=== PATIENT | male | born 1935 | race Caucasian/White ===

== ENCOUNTER 2017-03-20 00:05 | Emergency (ER) | payer MEDICARE, BC ==
--- NOTE | 2017-03-20 00:32 | EDM.PDOC ---
ED HPI GENERAL MEDICAL PROBLEM - General Chief Complaint: Trauma Stated Complaint: MEDICAL VIA NORTH - FALL Time Seen by Provider: 03/20/17 00:30 Source of Information: Reports: Patient History Limitations: Reports: No Limitations - History of Present Illness INITIAL COMMENTS - FREE TEXT/NARRATIVE: pt arrived after falling down 2 flights of stairs. He hit his head and was slightly confused at first. He was also complaining of neck pain. He has a abrasion on the top of his head. He has swelling in the left wrist. Onset: Today, Sudden Duration: Minutes: Location: Reports: Head, Neck, Upper Extremity, Left, Upper Extremity, Right Associated Symptoms: Reports: Confusion, Other (pt did complain of neck pain) Treatments BULK FOLDER: Reports: Cervical Collar, IV/IO left wrist Pain Score (Numeric/FACES): 6 right thumb Pain Score (Numeric/FACES): 6 - Related Data Allergies Allergy/AdvReac Type Severity Reaction Status Date / Time meperidine Allergy Cannot Verified 03/20/17 00:13 Remember Home Meds: Home Meds Cholecalciferol (Vitamin D3) [Vitamin D3] 6,000 unit PO DAILY 02/09/15 [History] Lcysteine 600 mg PO DAILY 02/09/15 [History] [place]-3 Fatty Acids [Fish Oil] 1,000 mg PO DAILY 02/09/15 [History] Policosanol Combination No.3 [Zyncol] 10 mg PO DAILY 02/09/15 [History] Prasterone (DHEA) [Dhea 25] 25 mg PO DAILY 02/09/15 [History] Resveratrol 800 mg PO DAILY 02/09/15 [History] S-Adenosylmethionine Sul Tosyl [Dayo-E] 200 mg PO DAILY 02/09/15 [History] Theanine [Vitamelts Relax] 100 mg PO DAILY 02/09/15 [History] Thyroid [[place] Thyroid] 65 mg PO DAILY 02/09/15 [History] Tocopherols 525 units PO DAILY 02/09/15 [History] Ubidecarenone [Co Q-10] 50 mg PO DAILY 02/09/15 [History] Vitamin D3/Vitamin K2 [D3 + K2 Dots 1,000 Unit] 2,100 mcg PO DAILY 02/09/15 [ History] levOCARNitine [l-Carnitine] 500 mg PO DAILY 02/09/15 [History] Past Medical History Other Gastrointestinal History: Hernia repairs. colon cancer colon resections Other Genitourinary History: Penile clamp Other Dermatologic History: skin cancer Social & Family History - Tobacco Use Smoking Status *Q: Never Smoker - Caffeine Use Caffeine Use: Reports: Coffee - Alcohol Use Days Per Week of Alcohol Use: 3 Number of Drinks Per Day: 3 Total Drinks Per Week: 9 - Recreational Drug Use Recreational Drug Use: No Review of Systems - Review of Systems Review Of Systems: See Below Constitutional: Reports: No Symptoms Eyes: Reports: No Symptoms Ears: Reports: No Symptoms Nose: Reports: No Symptoms Mouth/Throat: Reports: No Symptoms Respiratory: Reports: No Symptoms Cardiovascular: Reports: No Symptoms GI/Abdominal: Reports: No Symptoms Genitourinary: Reports: Incontinence Musculoskeletal: Reports: Neck Pain Neurological: Reports: Confusion Psychiatric: Reports: No Symptoms ED EXAM, GENERAL - Physical Exam Exam: See Below Free Text/Narrative:: Pt arrived with pain in the neck. He felt confused after the fall. He got up to go to the BR and loss his balance and he fell down a couple of flights of stairs. he was confused after the fall but that has improved. He is complaining of pain in the left wrist and there is swelling. Exam Limited By: No Limitations General Appearance: Alert, Anxious, Moderate Distress, Other (pupils are equal and reactive. ) Ears: Normal TMs Nose: Normal Inspection Throat/Mouth: Normal Inspection Head: Other (pt has an abrasion at the top of his head. He is current with his tetanus. ) Neck: Other (pt has tenderness at the upper portion of the cervical spine. ) Respiratory/Chest: No Respiratory Distress Cardiovascular: Regular Rate, Rhythm GI/Abdominal: Soft, Non-Tender (Male) Exam: Other (pt has urine incontinence. A preciado cath was placed. ) Rectal (Males) Exam: Deferred Back Exam: Normal Inspection Extremities: Normal Inspection Neurological: Alert, Oriented, Normal Cognition Psychiatric: Anxious Course - Vital Signs Last Recorded V/S: Last Vital Signs Temp 38 C 03/20/17 01:45 Pulse 61 03/20/17 00:08 Resp 18 03/20/17 02:09 BP 156/65 H 03/20/17 02:09 Pulse Ox 94 L 03/20/17 02:09 - Orders/Labs/Meds Orders: Active Orders 24 hr Category Date Time Status EKG Documentation Completion [RC] ASDIRECTED Care 03/20/17 00:30 Active Cervical Spine wo Cont [CT] Stat Exams 03/20/17 00:06 Taken Head wo Cont [CT] Stat Exams 03/20/17 00:06 Taken Wrist Comp Min 3V Lt [CR] Stat Exams 03/20/17 00:08 Taken EKG 12 Lead [EK] Routine Ther 03/20/17 00:30 Ordered Labs: Laboratory Tests 03/20/17 03/20/17 03/20/17 Range/Units 00:06 00:11 00:11 WBC 6.4 (4.5-11.0) K/uL RBC 4.52 (4.30-5.90) M/uL Hgb 14.2 (12.0-15.0) g/dL Hct 42.4 (40.0-54.0) % MCV 94 (80-98) fL MCH 31 (27-31) pg MCHC 34 (32-36) % Plt Count 150 (150-400) K/uL Neut % (Auto) 46 (36-66) % Lymph % (Auto) 42 (24-44) % [place] % (Auto) 8 H (2-6) % Eos % (Auto) 3 (2-4) % Baso % (Auto) 1 (0-1) % Sodium 145 (140-148) mmol/L Potassium 3.7 (3.6-5.2) mmol/L Chloride 106 (100-108) mmol/L Carbon Dioxide 32 (21-32) mmol/L Anion Gap 7.2 (5.0-14.0) mmol/L BUN 19 H (7-18) mg/dL Creatinine 1.1 (0.8-1.3) mg/dL Est Cr Clr Drug Dosing 56.22 mL/min Estimated GFR (MDRD) > 60 (>60) Glucose 105 (74-106) mg/dL Calcium 9.0 (8.5-10.1) mg/dL Total Bilirubin 0.7 (0.2-1.0) mg/dL AST 24 (15-37) U/L ALT 29 (12-78) U/L Alkaline Phosphatase 94 (46-116) U/L Troponin I (0.000-0.056) ng/mL Total Protein 7.0 (6.4-8.2) g/dL Albumin 3.3 L (3.4-5.0) g/dL Globulin 3.7 H (2.3-3.5) g/dL Albumin/Globulin Ratio 0.9 L (1.2-2.2) TSH, Ultra Sensitive (0.358-3.740) uIU/mL Urine Color Urine Appearance Urine pH (4.5-8.0) Ur Specific [place] (1.008-1.030) Urine Protein (NEGATIVE) mg/dL Urine Glucose (UA) (NEGATIVE) mg/dL Urine Ketones (NEGATIVE) mg/dL Urine Occult Blood (NEGATIVE) Urine Nitrite (NEGAITVE) Urine Bilirubin (NEGATIVE) Urine Urobilinogen (NORMAL) mg/dL Ur Leukocyte Esterase (NEGATIVE) Urine RBC (0-5) Urine WBC (0-5) Ur Epithelial Cells Amorphous Sediment Urine Bacteria Urine Mucus Ethyl Alcohol < 3 mg/dL 03/20/17 03/20/17 03/20/17 Range/Units 00:13 00:30 01:39 WBC (4.5-11.0) K/uL RBC (4.30-5.90) M/uL Hgb (12.0-15.0) g/dL Hct (40.0-54.0) % MCV (80-98) fL MCH (27-31) pg MCHC (32-36) % Plt Count (150-400) K/uL Neut % (Auto) (36-66) % Lymph % (Auto) (24-44) % [place] % (Auto) (2-6) % Eos % (Auto) (2-4) % Baso % (Auto) (0-1) % Sodium (140-148) mmol/L Potassium (3.6-5.2) mmol/L Chloride (100-108) mmol/L Carbon Dioxide (21-32) mmol/L Anion Gap (5.0-14.0) mmol/L BUN (7-18) mg/dL Creatinine (0.8-1.3) mg/dL Est Cr Clr Drug Dosing mL/min Estimated GFR (MDRD) (>60) Glucose (74-106) mg/dL Calcium (8.5-10.1) mg/dL Total Bilirubin (0.2-1.0) mg/dL AST (15-37) U/L ALT (12-78) U/L Alkaline Phosphatase (46-116) U/L Troponin I < 0.017 (0.000-0.056) ng/mL Total Protein (6.4-8.2) g/dL Albumin (3.4-5.0) g/dL Globulin (2.3-3.5) g/dL Albumin/Globulin Ratio (1.2-2.2) TSH, Ultra Sensitive 2.491 (0.358-3.740) uIU/mL Urine Color Yellow Urine Appearance Clear Urine pH 6.0 (4.5-8.0) Ur Specific [place] 1.020 (1.008-1.030) Urine Protein Negative (NEGATIVE) mg/dL Urine Glucose (UA) Normal (NEGATIVE) mg/dL Urine Ketones Negative (NEGATIVE) mg/dL Urine Occult Blood Negative (NEGATIVE) Urine Nitrite Negative (NEGAITVE) Urine Bilirubin Negative (NEGATIVE) Urine Urobilinogen Normal (NORMAL) mg/dL Ur Leukocyte Esterase Negative (NEGATIVE) Urine RBC 0-5 (0-5) Urine WBC 0-5 (0-5) Ur Epithelial Cells Not seen Amorphous Sediment Not seen Urine Bacteria Not seen Urine Mucus Not seen Ethyl Alcohol mg/dL - Re-Assessments/Exams Free Text/Narrative Re-Assessment/Exam: 03/20/17 01:40 pt is current with tetanus. He had a cat scan of the head which was neg. He had a cat scan of the cervical spine which showed a c2 vertbral fracture involving the right transverse giles. He had an xray of his left wrist which did reveal a fracture of the distal radius. a splint was applied to the wrist. He had a preciado cath inserted because of the cervical spine. Departure - Departure Time of Disposition: 02:12 Disposition: DC/Tfer to Acute Hospital 02 Condition: Fair Clinical Impression: Fracture of C2 vertebra, closed, Abrasion of scalp, Fracture of distal end of left radius, Concussion - Discharge Information Referrals: PCP,None [Primary Care Provider] - Forms: ED Department Discharge Care Plan Goals: transfer to [facility]. - My Orders Last 24 Hours: My Active Orders 03/20/17 00:06 Cervical Spine wo Cont [CT] Stat Head wo Cont [CT] Stat 03/20/17 00:08 Wrist Comp Min 3V Lt [CR] Stat 03/20/17 00:30 EKG Documentation Completion [RC] ASDIRECTED EKG 12 Lead [EK] Routine - Assessment/Plan Last 24 Hours: My Active Orders 03/20/17 00:06 Cervical Spine wo Cont [CT] Stat Head wo Cont [CT] Stat 03/20/17 00:08 Wrist Comp Min 3V Lt [CR] Stat 03/20/17 00:30 EKG Documentation Completion [RC] ASDIRECTED EKG 12 Lead [EK] Routine
[2017-03-20 02:10] VITALS: BP 156/65
--- NOTE | 2017-03-20 10:50 | CR ---
Left wrist There is a nondisplaced fracture of the radial styloid process. There is adjacent soft tissue swellin g. The ulna and carpal bones are intact. Impression: 1. Nondisplaced fracture of the radial styloid.
== END 2017-03-20 02:41 ==
LOC: JP.ED 00:05
DX: S06.0X9A Concussion with loss of consciousness of unspecified duration, initial encounter (principal); S12.100A Unspecified displaced fracture of second cervical vertebra, initial encounter for closed fracture; S52.502A Unspecified fracture of the lower end of left radius, initial encounter for closed fracture; S00.01XA Abrasion of scalp, initial encounter; Z88.8 Allergy status to other drugs, medicaments and biological substances; Z79.899 Other long term (current) drug therapy; W10.8XXA Fall (on) (from) other stairs and steps, initial encounter; Y92.009 Unspecified place in unspecified non-institutional (private) residence as the place of occurrence of the external cause
CPT/HCPCS: 36415; 51702; 70450; 72125; 73110; 80053; 81001; 84443; 84484; 85025; 93005; 93010; 99285; G0480; 99284

== ENCOUNTER 2018-05-08 19:30 | Emergency (ER) | payer MEDICARE, BC ==
[2018-05-08 19:59] VITALS: BP 145/82
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
== END 2018-05-08 21:20 | disposition home or self-care (01) ==
LOC: JP.ED 19:30
DX: S90.02XA Contusion of left ankle, initial encounter (principal); I10 Essential (primary) hypertension; Z88.8 Allergy status to other drugs, medicaments and biological substances; Z79.899 Other long term (current) drug therapy; V49.9XXA Car occupant (driver) (passenger) injured in unspecified traffic accident, initial encounter
CPT/HCPCS: 73610-LT; 73630-LT; 99284

== ENCOUNTER 2018-06-24 16:43 | Inpatient (IN) | payer MEDICARE, BC ==
[2018-06-24] MEDS ORDERED: Sodium Chloride 0.9% 10 ML Syringe FLUSH PRN (17:00)
--- NOTE | 2018-06-24 17:08 | EDM.PDOC ---
ED HPI GENERAL MEDICAL PROBLEM - General Chief Complaint: Neuro Symptoms/Deficits Stated Complaint: POSSIBLE STROKE Time Seen by Provider: 06/24/18 17:05 Source of Information: Reports: Patient, Family, RN Notes Reviewed History Limitations: Reports: Physical Impairment - History of Present Illness INITIAL COMMENTS - FREE TEXT/NARRATIVE: 83-year-old gentleman presents emergency department today with complaint of slurred speech, his is present with him she believes the symptoms started last night states he might of been better this morning but the symptoms now have progressed he is well over 24 hours out. He does have a known history of underlying dementia reports no other symptomology other than has been drooling for about a week Denies Pain Score (Numeric/FACES): 0 - Related Data Allergies Allergy/AdvReac Type Severity Reaction Status Date / Time meperidine Allergy Cannot Verified 06/24/18 16:58 Remember Home Meds: Home Meds Cholecalciferol (Vitamin D3) [Vitamin D3] 3,000 unit PO DAILY 02/09/15 [History] [place]-3 Fatty Acids [Fish Oil] 1,000 mg PO DAILY 02/09/15 [History] Resveratrol 800 mg PO DAILY 02/09/15 [History] Ubidecarenone [Co Q-10] 50 mg PO DAILY 02/09/15 [History] Vitamin D3/Vitamin K2 [D3 + K2 Dots 1,000 Unit] 2,100 mcg PO DAILY 02/09/15 [ History] levOCARNitine [l-Carnitine] 500 mg PO DAILY 02/09/15 [History] Donepezil HCl [Aricept] 10 mg PO BEDTIME 05/08/18 [History] *Gamma E 1 tab PO DAILY 06/24/18 [History] Phytonadione [Vitamin K] 100 mcg PO DAILY 06/24/18 [History] Past Medical History HEENT History: Reports: Cataract Cardiovascular History: Reports: Afib, Hypertension Other Gastrointestinal History: Hernia repairs. colon cancer colon resections Other Genitourinary History: Penile clamp Musculoskeletal History: Reports: Fracture Psychiatric History: Reports: Dementia, Depression Oncologic (Cancer) History: Reports: Colon, Prostate Other Oncologic History: skin Other Dermatologic History: skin cancer - Infectious Disease History Infectious Disease History: Reports: C-Difficile, Measles - Past Surgical History HEENT Surgical History: Reports: Cataract Surgery Social & Family History - Caffeine Use Caffeine Use: Reports: Coffee ED ROS GENERAL - Review of Systems Review Of Systems: See Below Constitutional: Reports: Weakness HEENT: Reports: No Symptoms Respiratory: Reports: No Symptoms Cardiovascular: Reports: No Symptoms GI/Abdominal: Reports: No Symptoms : Reports: No Symptoms Musculoskeletal: Reports: No Symptoms Skin: Reports: No Symptoms Neurological: Reports: Trouble Speaking ED EXAM, NEURO - Physical Exam Exam: See Below Text/Narrative:: Cranial nerves II test with pupillary light reflex 4 mm to 2 mm bilaterally, CN III test pupillary constriction, lid elevation and eye abduction bilaterally, no weakness noted, CN IV downward movement of eyes bilaterally, CN V good jaw movement, CN lateral deviation of the eyes bilaterally to finger movement, CN VII a symmetrical smile with drooping on the left, forehead is spared, CN VIII pass finger rub to ears bilaterally, CN IX adequate voice and tone, CN X adequate voice and tone no difficulty swallowing, CN XI can shrug shoulders without difficulty, CN XII can stick tongue out without difficulty, cranial nerves II to XII intact as tested, power is 5 out 5 in upper and lower extremities, patellar reflex, biceps reflex +2 can do finger to nose without difficulty, no dysdiadochokinesis, Exam Limited By: Physical Impairment General Appearance: Alert, WD/WN, No Apparent Distress Eye Exam: Bilateral Eye: EOMI, PERRL Respiratory/Chest: No Respiratory Distress, Lungs Clear, Normal Breath Sounds, No Accessory Muscle Use Cardiovascular: Irregularly Irregular GI/Abdominal: Soft, Non-Tender Course - Vital Signs Last Recorded V/S: Last Vital Signs Temp 97.2 F 06/24/18 17:09 Pulse 44 L 06/24/18 17:09 Resp 13 06/24/18 17:09 BP 157/88 H 06/24/18 17:09 Pulse Ox 98 06/24/18 17:09 - Orders/Labs/Meds Orders: Active Orders 24 hr Category Date Time Status EKG Documentation Completion [RC] ASDIRECTED Care 06/24/18 17:02 Active Peripheral IV Care [RC] . DIRECTED Care 06/24/18 17:02 Active DRUG SCREEN, URINE [URCHEM] Stat Lab 06/24/18 17:04 Ordered UA W/MICROSCOPIC [URIN] Urgent Lab 06/24/18 17:00 Ordered Sodium Chloride 0.9% [Saline Flush] Med 06/24/18 17:00 Active 10 ml FLUSH ASDIRECTED PRN Peripheral IV Insertion Adult [OM.PC] Urgent Oth 06/24/18 17:00 Ordered EKG 12 Lead [EK] Urgent Ther 06/24/18 17:00 Ordered Medication Orders Sodium Chloride (Saline Flush) 10 ml FLUSH ASDIRECTED PRN PRN Reason: Keep Vein Open Last Admin: 06/24/18 17:19 Dose: 10 ml Labs: Laboratory Tests 06/24/18 06/24/18 06/24/18 Range/Units 17:00 17:00 17:00 WBC 6.0 (4.5-11.0) K/uL RBC 4.49 (4.30-5.90) M/uL Hgb 13.9 (12.0-15.0) g/dL Hct 42.3 (40.0-54.0) % MCV 94 (80-98) fL MCH 31 (27-31) pg MCHC 33 (32-36) % Plt Count 129 L (150-400) K/uL Neut % (Auto) 58 (36-66) % Lymph % (Auto) 34 (24-44) % [place] % (Auto) 7 H (2-6) % Eos % (Auto) 1 L (2-4) % Baso % (Auto) 0 (0-1) % PT 11.8 (9.5-12.0) sec INR 1.08 (0.80-1.20) APTT 29.2 (27.0-36.0) sec Sodium 143 (140-148) mmol/L Potassium 3.5 L (3.6-5.2) mmol/L Chloride 105 (100-108) mmol/L Carbon Dioxide 30 (21-32) mmol/L Anion Gap 11.5 (5.0-14.0) mmol/L BUN 18 (7-18) mg/dL Creatinine 1.0 (0.8-1.3) mg/dL Est Cr Clr Drug Dosing 59.82 mL/min Estimated GFR (MDRD) > 60 (>60) Glucose 101 (74-106) mg/dL Calcium 9.1 (8.5-10.1) mg/dL Total Bilirubin 0.7 (0.2-1.0) mg/dL AST 19 (15-37) U/L ALT 24 (12-78) U/L Alkaline Phosphatase 98 (46-116) U/L Troponin I < 0.017 (0.000-0.056) ng/mL Total Protein 7.0 (6.4-8.2) g/dL Albumin 3.4 (3.4-5.0) g/dL Globulin 3.6 H (2.3-3.5) g/dL Albumin/Globulin Ratio 0.9 L (1.2-2.2) Meds: Medications Generic Name Dose Route Start Last Admin Trade Name Freq PRN Reason Stop Dose Admin Sodium Chloride 10 ml 06/24/18 17:00 06/24/18 17:19 Saline Flush FLUSH 10 ml ASDIRECTED PRN Administration Keep Vein Open Departure - Departure Time of Disposition: 18:30 Disposition: Admitted As Inpatient 66 Condition: Poor Clinical Impression: Slurred speech - Discharge Information Referrals: PCP,None [Primary Care Provider] - Forms: ED Department Discharge - My Orders Last 24 Hours: My Active Orders 06/24/18 17:00 UA W/MICROSCOPIC [URIN] Urgent Sodium Chloride 0.9% [Saline Flush] 10 ml FLUSH ASDIRECTED PRN Peripheral IV Insertion Adult [OM.PC] Urgent EKG 12 Lead [EK] Urgent 06/24/18 17:02 EKG Documentation Completion [RC] ASDIRECTED Peripheral IV Care [RC] . DIRECTED 06/24/18 17:04 DRUG SCREEN, URINE [URCHEM] Stat - Assessment/Plan Last 24 Hours: My Active Orders 06/24/18 17:00 UA W/MICROSCOPIC [URIN] Urgent Sodium Chloride 0.9% [Saline Flush] 10 ml FLUSH ASDIRECTED PRN Peripheral IV Insertion Adult [OM.PC] Urgent EKG 12 Lead [EK] Urgent 06/24/18 17:02 EKG Documentation Completion [RC] ASDIRECTED Peripheral IV Care [RC] . DIRECTED 06/24/18 17:04 DRUG SCREEN, URINE [URCHEM] Stat Plan: Assessment Acuity = acute Site and laterality = strokelike symptoms left-sided facial droop with slurred speech complicated patient with significant dementia Etiology = [unclear etiology Manifestations = none Location of injury = Home Lab values = CBC, CMP, urinalysis unremarkable CT scan of the head shows no acute process Plan Because of his significant dementia family does not want any aggressive measures I discussed transfer to stroke centers department they declined, they are currently seeking placement in the memory care unit they are interested in an MRI for further evaluation of his current symptoms whether CVA versus Hickey's palsy versus aspects of his dementia. Also they are trying to gain placement to memory care unit at this time. Called discussed case with hospitalist enthone solder stripper at 1800 kindly agreed to come and evaluate patient emergency department for admission This note was dictated using [employer] voice recognition software please call with any questions on syntax or grammar.
--- NOTE | 2018-06-24 18:06 | CRLCT ---
INDICATION: Slurred speech. Left-sided facial droop. Stroke protocol. TECHNIQUE: CT head without contrast. COMPARISON: 03/20/17 FINDINGS: There is age-related cortical atrophy with associated ventriculomegaly. There is no mass effect or midline shift. White matter hypodensities are suggestive of chronic small vessel ischemic changes. There is no loss of white-white differentiation. There is increased density in the left supra clinoid carotid and proximal MCA, however, this was seen on the prior. There is no evidence of an acute intracranial hemorrhage. Foci of gas in the left cavernous region could be related to IV access. No acute calvarial fracture is seen. There are foci of mild mucosal thickening in the ethmoid sinuses. The mastoid air cells are clear. Post cataract surgery changes are seen. IMPRESSION: No evidence of an acute intracranial hemorrhage, mass effect or loss of white-white differentiation. Increased attenuation in the left supra clinoid carotid and proximal MCA was seen on the prior study. If indicated, correlate with MRI. The findings were communicated to Dr. Officer, on 06/24/2018 at 6:04 p.m.. Dictated by Huy Bernard MD @ 06/24/2018 6:05:48 PM Please note that all CT scans at this facility use dose modulation, iterative reconstruction, and/or weight-based dosing when appropriate to reduce radiation dose to as low as reasonably achievable. Dictated by: Huy Bernard MD @ 06/24/2018 18:05:51 (Electronically Signed)
[2018-06-24] MEDS ORDERED: LORazepam 2 MG/ML SDV IV PRN (20:38)
[2018-06-24] MEDS ORDERED: Docusate Sodium 100 MG Cap PO PRN (20:38)
[2018-06-24] MEDS ORDERED: Ondansetron 4 MG/2 ML SDV IV PRN (20:38)
[2018-06-24] MEDS ORDERED: Morphine 2 MG/ML Syringe IVPUSH PRN (20:38)
[2018-06-24] MEDS ORDERED: Albuterol 0.083% 2.5 MG/3 ML Neb Soln NEB PRN (20:38)
[2018-06-24] MEDS ORDERED: Acetaminophen 325 MG Tab PO PRN (20:38)
[2018-06-24] MEDS ORDERED: Ondansetron 4 MG Tab.DIS PO PRN (20:38)
[2018-06-24] MEDS ORDERED: Aspirin 81 MG Tab.Chew PO ONE (20:38)
[2018-06-24] MEDS ORDERED: oxyCODONE 5 MG Tab PO PRN (20:38)
[2018-06-24] MEDS: Sodium Chloride 0.9% 1,000 ML IV SCH (20:56)
[2018-06-24] MEDS: Donepezil 10 MG Tab PO SCH (21:04)
[2018-06-24] MEDS ORDERED: cefTRIAXone 1 GM in Sodium Chloride 0.9% 50 ML IV SCH (22:30)
--- NOTE | 2018-06-24 22:38 | PCM.HP ---
H&P History of Present Illness - General Date of Service: 06/24/18 Admit Problem/Dx: Admission Diagnosis/Problem Admission Diagnosis/Problem Stroke-like symptoms Source of Information: Family ( Sunita of 40 years.) History Limitations: Reports: Altered Mental Status (advanced dementia) - History of Present Illness Initial Comments - Free Text/Narative: 83-year-old gentleman presents emergency department today with complaint of slurred speech, his is present with him she believes the symptoms started last night states he might of been better this morning but the symptoms now have progressed he is well over 24 hours out. He does have a known history of underlying dementia reports no other symptomatology other than has been drooling for about a week Onset of Symptoms: Reports: Gradual Duration of Symptoms: Reports: Day(s): (yesterday evening) Location: Reports: Head (left sided facial droop, unsteady gait) Improves with: Reports: None Worsens with: Reports: Other ( reports this morning he was better, then as the day progressed he got worse, but also reports he usually is more tired in the afternoon. ) Associated Symptoms: Reports: Weakness (left sided facial droop with unsteady gait) Denies Pain Score (Numeric/FACES): 0 - Related Data Allergies/Adverse Reactions: Allergies Allergy/AdvReac Type Severity Reaction Status Date / Time meperidine Allergy Cannot Verified 06/24/18 16:58 Remember Home Medications: Home Meds Cholecalciferol (Vitamin D3) [Vitamin D3] 3,000 unit PO DAILY 02/09/15 [History] [place]-3 Fatty Acids [Fish Oil] 1,000 mg PO DAILY 02/09/15 [History] Resveratrol 800 mg PO DAILY 02/09/15 [History] Ubidecarenone [Co Q-10] 50 mg PO DAILY 02/09/15 [History] Vitamin D3/Vitamin K2 [D3 + K2 Dots 1,000 Unit] 2,100 mcg PO DAILY 02/09/15 [ History] levOCARNitine [l-Carnitine] 500 mg PO DAILY 02/09/15 [History] Donepezil HCl [Aricept] 10 mg PO BEDTIME 05/08/18 [History] *Gamma E 1 tab PO DAILY 06/24/18 [History] Phytonadione [Vitamin K] 100 mcg PO DAILY 03/06/19 [History] Past Medical History HEENT History: Reports: Cataract Cardiovascular History: Reports: Afib, Hypertension Other Gastrointestinal History: Hernia repairs. colon cancer colon resections Genitourinary History: Reports: Urinary Incontinence Other Genitourinary History: Penile clamp Musculoskeletal History: Reports: Fracture Psychiatric History: Reports: Dementia, Depression Oncologic (Cancer) History: Reports: Colon, Prostate Other Oncologic History: skin Other Dermatologic History: skin cancer - Infectious Disease History Infectious Disease History: Reports: C-Difficile, Measles - Past Surgical History HEENT Surgical History: Reports: Cataract Surgery Social & Family History - Family History Family Medical History: Unobtainable - Tobacco Use Smoking Status *Q: Never Smoker Second Hand Smoke Exposure: No - Caffeine Use Caffeine Use: Reports: None - Alcohol Use Days Per Week of Alcohol Use: 0 - Recreational Drug Use Recreational Drug Use: No - Living Situation & Occupation Living situation: Reports: , with Family Occupation: Disabled (lives with Sunita of 40 years. Son last year of sudden heart attack, Daughter is not well, Mental health issues. Disabled by Dementia. cared for at home by . 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 After [employer]ci traveled for 11 years in Travel trailer, then he got dementia in 2002.) H&P Review of Systems - Review of Systems: Review Of Systems: Unable To Obtain ( gives 100% of report, Mr. Malagon give yes or no, or rambling answer not related to question.) General: Reports: Weakness (progress weakness and unsteady gait, multi falls at home, now using a walker), Fatigue (sleeping all the time, more alert in the morning.) HEENT: Reports: Other (left sided facial droop since yesterday evening.) Pulmonary: Reports: No Symptoms Cardiovascular: Reports: Palpitations (A.Fib), Edema (lower legs for years), Other (A.Fib- takes blood thinner and vitamin K) Gastrointestinal: Reports: Constipation (intermittent), Diarrhea (intermittent) , Stool Incontinence (wears pads or diapers) Genitourinary: Reports: Incontinence (had prostate surgery, now has penile clamp to use during the day, takes off at night.) Musculoskeletal: Reports: Muscle Stiffness Skin: Reports: Rash (chronic rash on lower legs for weeks or months. does not appear to cause him any discomfort) Psychiatric: Reports: Confusion, Other (advanced cognitive impairment, dementia since 2002) Neurological: Reports: Pre-Existing Deficit (advance dementia first diagnosed in 2002.), Difficulty Walking (progressive unsteady gait and increased falls at home.), Weakness (increase in weakness) Hematologic/Lymphatic: Reports: Easy Bruising (blood thinner for A.Fib) Review of Systems Comment:: reports her was first diagnosed with dementia, mild to moderate cognitive impairment in 2002. This has changed their lives. They had to settle down from their travels. Purchased a one bedroom home in [place]. He is now unable to care for himself, drive or do any of his usual activities. He is incontinent of bladder and bowel, sometimes he is able to go to the bathroom. He spends most of his days sleeping. He ambulates with a walker, but now gait is unsteady and he has frequent falls at home. has to monitor him 11/11. Then last evening he had left facial droop and worsen gait. She brought him to the ER with concerns of stroke. She is unable to care for him at home. He had a room at the [facility], he was supposed to move in last Friday or Friday. But when seen the requirements of the home, she choose not to place him there. Exam - Exam Exam: See Below - Vital Signs Vital Signs: Last Vital Signs Temp 36.3 C 06/24/18 20:30 Pulse 47 L 06/24/18 20:30 Resp 16 06/24/18 20:30 BP 142/75 H 06/24/18 20:30 Pulse Ox 100 06/24/18 20:30 Weight: 86.863 kg - Exam General: Alert, Cooperative (laying on stretcher, does not appear to be in any distress, follows commands. answers questions yes or no or rambling speech not related to subject.), Other HEENT: PERRLA, Conjunctiva Clear, EOMI, Hearing Intact, Mucosa Moist & [place], Nares Patent, Normal Nasal Septum, Posterior Pharynx Clear Neck: Supple, Trachea Midline Lungs: Clear to Auscultation, Normal Respiratory Effort Cardiovascular: Bradycardia GI/Abdominal Exam: Normal Bowel Sounds, Soft, Non-Tender, No Organomegaly, No Distention (Male) Exam: Deferred Rectal (Males) Exam: Deferred Back Exam: Normal Inspection Extremities: Pedal Edema (1+ edema of lower legs is noted, has compresson socks ), Limited Range of Motion (muscle stiffnes, but able to move all extremities equal. 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) Skin: Warm, Dry, Intact Neurological: Strength Equal Bilateral Neuro Extensive - Mental Status: Disorientation to Person, Disorientation to Place, Disorientation to Time, Inattentive, Memory Loss-Remote Events Neuro Extensive - Motor, Sensory, Reflexes: Motor/Sensory Deficits, Facial palsy (L) Psychiatric: Other (awake, flat affect) - Patient Data Lab Results Last 24 hrs: Laboratory Results - last 24 hr 06/24/18 06/24/18 06/24/18 Range/Units 17:00 17:00 17:00 WBC 6.0 (4.5-11.0) K/uL RBC 4.49 (4.30-5.90) M/uL Hgb 13.9 (12.0-15.0) g/dL Hct 42.3 (40.0-54.0) % MCV 94 (80-98) fL MCH 31 (27-31) pg MCHC 33 (32-36) % Plt Count 129 L (150-400) K/uL Neut % (Auto) 58 (36-66) % Lymph % (Auto) 34 (24-44) % [place] % (Auto) 7 H (2-6) % Eos % (Auto) 1 L (2-4) % Baso % (Auto) 0 (0-1) % PT 11.8 (9.5-12.0) sec INR 1.08 (0.80-1.20) APTT 29.2 (27.0-36.0) sec Sodium 143 (140-148) mmol/L Potassium 3.5 L (3.6-5.2) mmol/L Chloride 105 (100-108) mmol/L Carbon Dioxide 30 (21-32) mmol/L Anion Gap 11.5 (5.0-14.0) mmol/L BUN 18 (7-18) mg/dL Creatinine 1.0 (0.8-1.3) mg/dL Est Cr Clr Drug Dosing 59.82 mL/min Estimated GFR (MDRD) > 60 (>60) Glucose 101 (74-106) mg/dL Calcium 9.1 (8.5-10.1) mg/dL Total Bilirubin 0.7 (0.2-1.0) mg/dL AST 19 (15-37) U/L ALT 24 (12-78) U/L Alkaline Phosphatase 98 (46-116) U/L Troponin I < 0.017 (0.000-0.056) ng/mL Total Protein 7.0 (6.4-8.2) g/dL Albumin 3.4 (3.4-5.0) g/dL Globulin 3.6 H (2.3-3.5) g/dL Albumin/Globulin Ratio 0.9 L (1.2-2.2) Urine Color Urine Appearance Urine pH (4.5-8.0) Ur Specific [place] (1.008-1.030) Urine Protein (NEGATIVE) mg/dL Urine Glucose (UA) (NEGATIVE) mg/dL Urine Ketones (NEGATIVE) mg/dL Urine Occult Blood (NEGATIVE) Urine Nitrite (NEGAITVE) Urine Bilirubin (NEGATIVE) Urine Urobilinogen (NORMAL) mg/dL Ur Leukocyte Esterase (NEGATIVE) Urine RBC (0-5) Urine WBC (0-5) Ur Epithelial Cells Amorphous Sediment Urine Bacteria Urine Mucus Urine Opiates Screen (NEGATIVE) Ur Oxycodone Screen (NEGATIVE) Urine Methadone Screen (NEGATIVE) Ur Propoxyphene Screen (NEGATIVE) Ur Barbiturates Screen (NEGATIVE) Ur Tricyclics Screen (NEGATIVE) Ur Phencyclidine Scrn (NEGATIVE) Ur Amphetamine Screen (NEGATIVE) U Methamphetamines Scrn (NEGATIVE) Urine MDMA Screen (NEGATIVE) U Benzodiazepines Scrn (NEGATIVE) U Cocaine Metab Screen (NEGATIVE) U Marijuana (THC) Screen (NEGATIVE) 06/24/18 06/24/18 Range/Units 20:29 20:29 WBC (4.5-11.0) K/uL RBC (4.30-5.90) M/uL Hgb (12.0-15.0) g/dL Hct (40.0-54.0) % MCV (80-98) fL MCH (27-31) pg MCHC (32-36) % Plt Count (150-400) K/uL Neut % (Auto) (36-66) % Lymph % (Auto) (24-44) % [place] % (Auto) (2-6) % Eos % (Auto) (2-4) % Baso % (Auto) (0-1) % PT (9.5-12.0) sec INR (0.80-1.20) APTT (27.0-36.0) sec Sodium (140-148) mmol/L Potassium (3.6-5.2) mmol/L Chloride (100-108) mmol/L Carbon Dioxide (21-32) mmol/L Anion Gap (5.0-14.0) mmol/L BUN (7-18) mg/dL Creatinine (0.8-1.3) mg/dL Est Cr Clr Drug Dosing mL/min Estimated GFR (MDRD) (>60) Glucose (74-106) mg/dL Calcium (8.5-10.1) mg/dL Total Bilirubin (0.2-1.0) mg/dL AST (15-37) U/L ALT (12-78) U/L Alkaline Phosphatase (46-116) U/L Troponin I (0.000-0.056) ng/mL Total Protein (6.4-8.2) g/dL Albumin (3.4-5.0) g/dL Globulin (2.3-3.5) g/dL Albumin/Globulin Ratio (1.2-2.2) Urine Color Yellow Urine Appearance Slightly cloudy Urine pH 5.0 (4.5-8.0) Ur Specific [place] 1.020 (1.008-1.030) Urine Protein Trace (NEGATIVE) mg/dL Urine Glucose (UA) Normal (NEGATIVE) mg/dL Urine Ketones Negative (NEGATIVE) mg/dL Urine Occult Blood Trace (NEGATIVE) Urine Nitrite Positive H (NEGAITVE) Urine Bilirubin Negative (NEGATIVE) Urine Urobilinogen Normal (NORMAL) mg/dL Ur Leukocyte Esterase Small (NEGATIVE) Urine RBC 5-10 H (0-5) Urine WBC 30-40 H (0-5) Ur Epithelial Cells Few Amorphous Sediment Not seen Urine Bacteria Many Urine Mucus Not seen Urine Opiates Screen Negative (NEGATIVE) Ur Oxycodone Screen Negative (NEGATIVE) Urine Methadone Screen Negative (NEGATIVE) Ur Propoxyphene Screen Negative (NEGATIVE) Ur Barbiturates Screen Negative (NEGATIVE) Ur Tricyclics Screen Negative (NEGATIVE) Ur Phencyclidine Scrn Negative (NEGATIVE) Ur Amphetamine Screen Negative (NEGATIVE) U Methamphetamines Scrn Negative (NEGATIVE) Urine MDMA Screen Negative (NEGATIVE) U Benzodiazepines Scrn Negative (NEGATIVE) U Cocaine Metab Screen Negative (NEGATIVE) U Marijuana (THC) Screen Negative (NEGATIVE) Result Diagrams: 06/24/18 17:00 06/24/18 17:00 - Problem List (1) Stroke-like symptoms SNOMED Code(s): 244580745 ICD Code: R29.90 - UNSPECIFIED SYMPTOMS AND SIGNS INVOLVING THE NERVOUS SYSTEM Status: Acute Priority: High Current Visit: Yes (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 SNOMED Code(s): 90442277 ICD Code: G30.9 - ALZHEIMER'S DISEASE, UNSPECIFIED; F02.80 - DEMENTIA IN OTH DISEASES CLASSD ELSWHR W/O BEHAVRL DISTURB Status: Acute Priority: High Current Visit: Yes (3) Urinary tract infection SNOMED Code(s): 39268373 ICD Code: N39.0 - URINARY TRACT INFECTION, SITE NOT SPECIFIED Status: Acute Priority: High Current Visit: Yes Qualifiers: Urinary tract infection type: site unspecified Hematuria presence: with hematuria Qualified Code(s): N39.0 - Urinary tract infection, site not specified; R31.9 - Hematuria, unspecified (4) 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 SNOMED Code(s): 88294471 ICD Code: N42.9 - DISORDER OF PROSTATE, UNSPECIFIED; R39.9 - UNSP SYMPTOMS AND SIGNS INVOLVING THE GENITOURINARY SYSTEM Status: Acute Priority: High Current Visit: Yes (5) Atrial fibrillation SNOMED Code(s): 72694642 ICD Code: I48.91 - UNSPECIFIED ATRIAL FIBRILLATION Status: Acute Priority : Medium Current Visit: Yes Qualifiers: Atrial fibrillation type: chronic Qualified Code(s): I48.2 - Chronic atrial fibrillation Problem List Initiated/Reviewed/Updated: Yes Orders Last 24hrs: Active Orders 24 hr Category Date Time Status Cardiac Monitoring [RC] .As Directed Care 06/24/18 20:38 Active Dietary Supplements [RC] BIDMEALS Care 06/24/18 22:26 Ordered Intake and Output [RC] QSHIFT Care 06/24/18 20:38 Active Notify Provider Vital Signs [RC] ASDIRECTED Care 06/24/18 20:38 Active Oxygen Therapy [RC] PRN Care 06/24/18 20:38 Active Pulse Oximetry [RC] PRN Care 06/24/18 20:38 Active RT Aerosol Therapy [RC] ASDIRECTED Care 06/24/18 20:38 Active Up With Assistance [RC] ASDIRECTED Care 06/24/18 20:38 Active VTE/DVT Education [RC] Per Unit Routine Care 06/24/18 20:38 Active Vital Signs [RC] Q4H Care 06/24/18 20:38 Active Consult to Case Management/Center Medical And Lab Director [CONS] Cons 06/24/18 20:38 Active Routine OT Evaluation and Treatment [CONS] Routine Cons 06/24/18 20:38 Active PT Evaluation and Treatment [CONS] Routine Cons 06/24/18 20:38 Active Regular Diet [DIET] Diet 06/24/18 Dinner Active BASIC METABOLIC PANEL,BMP [CHEM] AM Lab 06/25/18 05:11 Ordered CBC WITH AUTO DIFF [HEME] AM Lab 06/25/18 05:11 Ordered CULTURE URINE [RM] Routine Lab 06/24/18 22:27 Ordered Acetaminophen [Tylenol] Med 06/24/18 20:38 Active 650 mg PO Q4H PRN Albuterol [Proventil Neb Soln] Med 06/24/18 20:38 Active 2.5 mg NEB Q4H PRN Docusate Sodium [Colace] Med 06/24/18 20:38 Active 100 mg PO BID PRN Donepezil [Aricept] Med 06/24/18 21:00 Active 10 mg PO BEDTIME LORazepam [Ativan] Med 06/24/18 20:38 Active 1 mg IV Q6H PRN Morphine Med 06/24/18 20:38 Active 2 mg IVPUSH Q2H PRN Ondansetron [Zofran ODT] Med 06/24/18 20:38 Active 4 mg PO Q6H PRN Ondansetron [Zofran] Med 06/24/18 20:38 Active 4 mg IV Q4H PRN Sodium Chloride 0.9% [Normal Saline] 1,000 ml Med 06/24/18 20:38 Active IV ASDIRECTED Sodium Chloride 0.9% [Saline Flush] Med 06/24/18 17:00 Active 10 ml FLUSH ASDIRECTED PRN cefTRIAXone [Rocephin] 1 gm Med 06/24/18 22:30 Ordered Sodium Chloride 0.9% [Normal Saline] 50 ml IV Q24H levOCARNitine [l-Carnitine] Med 06/25/18 09:00 Pending 500 mg PO DAILY oxyCODONE Med 06/24/18 20:38 Active 5 mg PO Q4H PRN Sequential Compression Device [OM.PC] Per Unit Routine Oth 06/24/18 20:38 Ordered Resuscitation Status Routine Resus Stat 06/24/18 19:49 Ordered EKG 12 Lead [EK] Urgent Ther 06/24/18 17:00 Stop Req Medication Orders Acetaminophen (Tylenol) 650 mg PO Q4H PRN PRN Reason: Pain (Mild 1-3)/fever Albuterol (Proventil Neb Soln) 2.5 mg NEB Q4H PRN PRN Reason: Shortness Of Breath/wheezing Docusate Sodium (Colace) 100 mg PO BID PRN PRN Reason: Constipation Donepezil HCl (Aricept) 10 mg PO BEDTIME EVERT Last Admin: 06/24/18 21:04 Dose: 10 mg Sodium Chloride (Normal Saline) 1,000 mls @ 125 mls/hr IV ASDIRECTED EVERT Last Admin: 06/24/18 20:56 Dose: 125 mls/hr Ceftriaxone Sodium 1 gm/ (Sodium Chloride) 50 mls @ 100 mls/hr IV Q24H EVERT Lorazepam (Ativan) 1 mg IV Q6H PRN PRN Reason: Agitation Morphine Sulfate (Morphine) 2 mg IVPUSH Q2H PRN PRN Reason: Pain (severe 7-10) Non-Formulary Medication (Levocarnitine [L-Carnitine]) 500 mg PO DAILY EVERT Ondansetron HCl (Zofran Odt) 4 mg PO Q6H PRN PRN Reason: Nausea able to take PO Ondansetron HCl (Zofran) 4 mg IV Q4H PRN PRN Reason: Nausea/Vomiting Oxycodone HCl (Oxycodone) 5 mg PO Q4H PRN PRN Reason: Pain (moderate 4-6) Sodium Chloride (Saline Flush) 10 ml FLUSH ASDIRECTED PRN PRN Reason: Keep Vein Open Last Admin: 06/24/18 17:19 Dose: 10 ml Assessment/Plan Comment:: ASSESSMENT AND PLAN 83-year-old gentleman presents emergency department today with complaint of slurred speech, his is present with him she believes the symptoms started last night states he might of been better this morning but the symptoms now have progressed he is well over 24 hours out. He does have a known history of underlying dementia reports no other symptomatology other than has been drooling for about a week. ER work up, Head CT negative, Urine +nitrates, WBC,RBC, Bacteria. CBC, Chemistries, Troponin are all within normal range. will admit to hospital for Stroke-like symptoms to monitor for any worsen of symptoms. Stroke like symptoms -left facial droop -monitor for any worsen symptoms - declines any aggressive treatments or testing. She was offered referral/ transfer to Neurology unit, baby ASA, Tele, MRI with contrast, Carotid Doppler and Echocardiogram. She would agree to baby ASA and Tele. will decide tomorrow if she would like any further testing, decline transfer. At this point, request to keep comfortable and pain free. 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 ADMISSION STATUS-patient will be admitted to inpatient status, expect at least a 2 night hospital stay for evaluation and management of problems as outlined above. At the time of this admission I do not reasonably expected evaluation and management of this problem will require more than a 96 hour hospital stay. DISPOSITION-anticipate discharge to Memory Care unit or [facility] after the hospital stay. Primary Care Provider: Ajith Sánchez Hospitalist: Dr. Natan M.D.
[2018-06-25] MEDS: Sodium Chloride 0.9% 1,000 ML IV SCH (04:46)
[2018-06-25] MEDS: LEVOCARNITINE 500 MG PO SCH (09:16)
--- NOTE | 2018-06-25 12:18 | PCM.PN ---
- General Info Date of Service: 06/25/18 Subjective Update: Mr. Malagon is an 83-year-old gentleman who was admitted through the emergency department last night with right facial weakness and urinary tract infection. Facial weakness apparently been more prominent at home yesterday and was significantly improved by the time he arrived in the emergency department. On further evaluation emergency department he was found to have urinary tract infection, urine culture has been obtained and he was started on antibiotic therapy with Rocephin. Discussion was held with his on admission, she would like mainly management for comfort and did not want further aggressive evaluation or interventions. Patient is unable to provide significant or meaningful history concerning symptoms or review of systems because of his underlying dementia. - Patient Data Vitals - Most Recent: Last Vital Signs Temp 98.2 F 06/25/18 10:37 Pulse 46 L 06/25/18 10:37 Resp 14 06/25/18 10:37 BP 144/75 H 06/25/18 10:37 Pulse Ox 98 06/25/18 10:37 Weight - Most Recent: 191 lb 8.002 oz I&O - Last 24 Hours: Intake & Output 06/24/18 06/25/18 06/25/18 22:59 06:59 14:59 Intake Total 963 480 Output Total 100 225 500 Balance -100 738 -20 Lab Results Last 24 Hours: Laboratory Results - last 24 hr 06/24/18 06/24/18 06/24/18 Range/Units 17:00 17:00 17:00 WBC 6.0 (4.5-11.0) K/uL RBC 4.49 (4.30-5.90) M/uL Hgb 13.9 (12.0-15.0) g/dL Hct 42.3 (40.0-54.0) % MCV 94 (80-98) fL MCH 31 (27-31) pg MCHC 33 (32-36) % Plt Count 129 L (150-400) K/uL Neut % (Auto) 58 (36-66) % Lymph % (Auto) 34 (24-44) % [place] % (Auto) 7 H (2-6) % Eos % (Auto) 1 L (2-4) % Baso % (Auto) 0 (0-1) % PT 11.8 (9.5-12.0) sec INR 1.08 (0.80-1.20) APTT 29.2 (27.0-36.0) sec Sodium 143 (140-148) mmol/L Potassium 3.5 L (3.6-5.2) mmol/L Chloride 105 (100-108) mmol/L Carbon Dioxide 30 (21-32) mmol/L Anion Gap 11.5 (5.0-14.0) mmol/L BUN 18 (7-18) mg/dL Creatinine 1.0 (0.8-1.3) mg/dL Est Cr Clr Drug Dosing 59.82 mL/min Estimated GFR (MDRD) > 60 (>60) Glucose 101 (74-106) mg/dL Calcium 9.1 (8.5-10.1) mg/dL Total Bilirubin 0.7 (0.2-1.0) mg/dL AST 19 (15-37) U/L ALT 24 (12-78) U/L Alkaline Phosphatase 98 (46-116) U/L Troponin I < 0.017 (0.000-0.056) ng/mL Total Protein 7.0 (6.4-8.2) g/dL Albumin 3.4 (3.4-5.0) g/dL Globulin 3.6 H (2.3-3.5) g/dL Albumin/Globulin Ratio 0.9 L (1.2-2.2) Urine Color Urine Appearance Urine pH (4.5-8.0) Ur Specific [place] (1.008-1.030) Urine Protein (NEGATIVE) mg/dL Urine Glucose (UA) (NEGATIVE) mg/dL Urine Ketones (NEGATIVE) mg/dL Urine Occult Blood (NEGATIVE) Urine Nitrite (NEGAITVE) Urine Bilirubin (NEGATIVE) Urine Urobilinogen (NORMAL) mg/dL Ur Leukocyte Esterase (NEGATIVE) Urine RBC (0-5) Urine WBC (0-5) Ur Epithelial Cells Amorphous Sediment Urine Bacteria Urine Mucus Urine Opiates Screen (NEGATIVE) Ur Oxycodone Screen (NEGATIVE) Urine Methadone Screen (NEGATIVE) Ur Propoxyphene Screen (NEGATIVE) Ur Barbiturates Screen (NEGATIVE) Ur Tricyclics Screen (NEGATIVE) Ur Phencyclidine Scrn (NEGATIVE) Ur Amphetamine Screen (NEGATIVE) U Methamphetamines Scrn (NEGATIVE) Urine MDMA Screen (NEGATIVE) U Benzodiazepines Scrn (NEGATIVE) U Cocaine Metab Screen (NEGATIVE) U Marijuana (THC) Screen (NEGATIVE) 06/24/18 06/24/18 06/25/18 Range/Units 20:29 20:29 04:40 WBC 5.3 (4.5-11.0) K/uL RBC 4.27 L (4.30-5.90) M/uL Hgb 13.2 (12.0-15.0) g/dL Hct 40.2 (40.0-54.0) % MCV 94 (80-98) fL MCH 31 (27-31) pg MCHC 33 (32-36) % Plt Count 106 L (150-400) K/uL Neut % (Auto) 56 (36-66) % Lymph % (Auto) 35 (24-44) % [place] % (Auto) 7 H (2-6) % Eos % (Auto) 1 L (2-4) % Baso % (Auto) 0 (0-1) % PT (9.5-12.0) sec INR (0.80-1.20) APTT (27.0-36.0) sec Sodium (140-148) mmol/L Potassium (3.6-5.2) mmol/L Chloride (100-108) mmol/L Carbon Dioxide (21-32) mmol/L Anion Gap (5.0-14.0) mmol/L BUN (7-18) mg/dL Creatinine (0.8-1.3) mg/dL Est Cr Clr Drug Dosing mL/min Estimated GFR (MDRD) (>60) Glucose (74-106) mg/dL Calcium (8.5-10.1) mg/dL Total Bilirubin (0.2-1.0) mg/dL AST (15-37) U/L ALT (12-78) U/L Alkaline Phosphatase (46-116) U/L Troponin I (0.000-0.056) ng/mL Total Protein (6.4-8.2) g/dL Albumin (3.4-5.0) g/dL Globulin (2.3-3.5) g/dL Albumin/Globulin Ratio (1.2-2.2) Urine Color Yellow Urine Appearance Slightly cloudy Urine pH 5.0 (4.5-8.0) Ur Specific [place] 1.020 (1.008-1.030) Urine Protein Trace (NEGATIVE) mg/dL Urine Glucose (UA) Normal (NEGATIVE) mg/dL Urine Ketones Negative (NEGATIVE) mg/dL Urine Occult Blood Trace (NEGATIVE) Urine Nitrite Positive H (NEGAITVE) Urine Bilirubin Negative (NEGATIVE) Urine Urobilinogen Normal (NORMAL) mg/dL Ur Leukocyte Esterase Small (NEGATIVE) Urine RBC 5-10 H (0-5) Urine WBC 30-40 H (0-5) Ur Epithelial Cells Few Amorphous Sediment Not seen Urine Bacteria Many Urine Mucus Not seen Urine Opiates Screen Negative (NEGATIVE) Ur Oxycodone Screen Negative (NEGATIVE) Urine Methadone Screen Negative (NEGATIVE) Ur Propoxyphene Screen Negative (NEGATIVE) Ur Barbiturates Screen Negative (NEGATIVE) Ur Tricyclics Screen Negative (NEGATIVE) Ur Phencyclidine Scrn Negative (NEGATIVE) Ur Amphetamine Screen Negative (NEGATIVE) U Methamphetamines Scrn Negative (NEGATIVE) Urine MDMA Screen Negative (NEGATIVE) U Benzodiazepines Scrn Negative (NEGATIVE) U Cocaine Metab Screen Negative (NEGATIVE) U Marijuana (THC) Screen Negative (NEGATIVE) 06/25/18 Range/Units 04:40 WBC (4.5-11.0) K/uL RBC (4.30-5.90) M/uL Hgb (12.0-15.0) g/dL Hct (40.0-54.0) % MCV (80-98) fL MCH (27-31) pg MCHC (32-36) % Plt Count (150-400) K/uL Neut % (Auto) (36-66) % Lymph % (Auto) (24-44) % [place] % (Auto) (2-6) % Eos % (Auto) (2-4) % Baso % (Auto) (0-1) % PT (9.5-12.0) sec INR (0.80-1.20) APTT (27.0-36.0) sec Sodium 143 (140-148) mmol/L Potassium 3.8 (3.6-5.2) mmol/L Chloride 108 (100-108) mmol/L Carbon Dioxide 30 (21-32) mmol/L Anion Gap 5.1 (5.0-14.0) mmol/L BUN 17 (7-18) mg/dL Creatinine 1.0 (0.8-1.3) mg/dL Est Cr Clr Drug Dosing 59.97 mL/min Estimated GFR (MDRD) > 60 (>60) Glucose 100 (74-106) mg/dL Calcium 8.6 (8.5-10.1) mg/dL Total Bilirubin (0.2-1.0) mg/dL AST (15-37) U/L ALT (12-78) U/L Alkaline Phosphatase (46-116) U/L Troponin I (0.000-0.056) ng/mL Total Protein (6.4-8.2) g/dL Albumin (3.4-5.0) g/dL Globulin (2.3-3.5) g/dL Albumin/Globulin Ratio (1.2-2.2) Urine Color Urine Appearance Urine pH (4.5-8.0) Ur Specific [place] (1.008-1.030) Urine Protein (NEGATIVE) mg/dL Urine Glucose (UA) (NEGATIVE) mg/dL Urine Ketones (NEGATIVE) mg/dL Urine Occult Blood (NEGATIVE) Urine Nitrite (NEGAITVE) Urine Bilirubin (NEGATIVE) Urine Urobilinogen (NORMAL) mg/dL Ur Leukocyte Esterase (NEGATIVE) Urine RBC (0-5) Urine WBC (0-5) Ur Epithelial Cells Amorphous Sediment Urine Bacteria Urine Mucus Urine Opiates Screen (NEGATIVE) Ur Oxycodone Screen (NEGATIVE) Urine Methadone Screen (NEGATIVE) Ur Propoxyphene Screen (NEGATIVE) Ur Barbiturates Screen (NEGATIVE) Ur Tricyclics Screen (NEGATIVE) Ur Phencyclidine Scrn (NEGATIVE) Ur Amphetamine Screen (NEGATIVE) U Methamphetamines Scrn (NEGATIVE) Urine MDMA Screen (NEGATIVE) U Benzodiazepines Scrn (NEGATIVE) U Cocaine Metab Screen (NEGATIVE) U Marijuana (THC) Screen (NEGATIVE) Med Orders - Current: Current Medications Acetaminophen (Tylenol) 650 mg PO Q4H PRN PRN Reason: Pain (Mild 1-3)/fever Albuterol (Proventil Neb Soln) 2.5 mg NEB Q4H PRN PRN Reason: Shortness Of Breath/wheezing Docusate Sodium (Colace) 100 mg PO BID PRN PRN Reason: Constipation Donepezil HCl (Aricept) 10 mg PO BEDTIME [facility] Last Admin: 06/24/18 21:04 Dose: 10 mg Ceftriaxone Sodium 1 gm/ (Sodium Chloride) 50 mls @ 100 mls/hr IV Q24H [facility] Lorazepam (Ativan) 1 mg IV Q6H PRN PRN Reason: Agitation Morphine Sulfate (Morphine) 2 mg IVPUSH Q2H PRN PRN Reason: Pain (severe 7-10) (Levocarnitine [L- Carnitine] 500 Mg)* Pom 500 mg PO DAILY [facility] Last Admin: 06/25/18 09:16 Dose: Not Given Ondansetron HCl (Zofran Odt) 4 mg PO Q6H PRN PRN Reason: Nausea able to take PO Ondansetron HCl (Zofran) 4 mg IV Q4H PRN PRN Reason: Nausea/Vomiting Oxycodone HCl (Oxycodone) 5 mg PO Q4H PRN PRN Reason: Pain (moderate 4-6) Sodium Chloride (Saline Flush) 10 ml FLUSH ASDIRECTED PRN PRN Reason: Keep Vein Open Last Admin: 06/24/18 17:19 Dose: 10 ml Discontinued Medications Aspirin (Aspirin) 162 mg PO ONETIME ONE Stop: 06/24/18 20:39 Last Admin: 06/24/18 21:12 Dose: 162 mg Sodium Chloride (Normal Saline) 1,000 mls @ 125 mls/hr IV ASDIRECTED [facility] Last Admin: 06/25/18 04:46 Dose: 125 mls/hr Ceftriaxone Sodium 1 gm/ (Sodium Chloride) 50 mls @ 100 mls/hr IV Q24H [facility] Last Admin: 06/24/18 23:01 Dose: 100 mls/hr - Exam Quality Assessment: DVT Prophylaxis General: Alert, Cooperative, No Acute Distress. No: Oriented Lungs: Clear to Auscultation, Normal Respiratory Effort Cardiovascular: Regular Rate, No Murmurs, Irregular Rhythm GI/Abdominal Exam: Soft, Non-Tender, No Organomegaly, No Distention Extremities: Non-Tender, No Pedal Edema Neurological: Normal Speech, Other (Very mild weakness of the right for head, no other cranial nerve abnormalities noted) - Problem List Review Problem List Initiated/Reviewed/Updated: Yes - My Orders Last 24 Hours: My Active Orders 06/25/18 11:59 Convert IV to Saline Lock [OM.PC] Routine - Plan Plan:: ASSESSMENT AND PLAN Stroke like symptoms-essentially resolved, only slight weakness of the forehead noted on evaluation today -monitor for any worsen symptoms - declines any aggressive treatments or testing. She was offered referral/ transfer to Neurology unit, baby ASA, Tele, MRI with contrast, Carotid Doppler and Echocardiogram. She would agree to baby ASA and Tele. 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 ADMISSION STATUS-patient will be admitted to inpatient status, expect at least a 2 night hospital stay for evaluation and management of problems as outlined above. At the time of this admission I do not reasonably expected evaluation and management of this problem will require more than a 96 hour hospital stay. DISPOSITION-anticipate discharge to Memory Care unit or [facility] after the hospital stay. Primary Care Provider: [facility] Hospitalist: Dr. Natan M.D.
[2018-06-25] MEDS: Donepezil 10 MG Tab PO SCH (20:03)
[2018-06-25] MEDS: Melatonin 3 MG Tab PO SCH (20:03)
[2018-06-25] MEDS ORDERED: cefTRIAXone 1 GM in Sodium Chloride 0.9% 50 ML IV SCH (22:00)
--- NOTE | 2018-06-26 12:16 | PCM.PN ---
- General Info Date of Service: 06/26/18 Subjective Update: Mr. Malagon has been stable since yesterday, facial weakness has totally resolved. He remains pleasantly confused with no significant agitation. Functional Status: Reports: Tolerating Diet, Urinating - Review of Systems General: Reports: Weakness. Denies: Fever, Chills Pulmonary: Reports: No Symptoms Cardiovascular: Reports: No Symptoms Gastrointestinal: Reports: No Symptoms Neurological: Reports: Confusion. Denies: Trouble Speaking, Weakness - Patient Data Vitals - Most Recent: Last Vital Signs Temp 97.0 F 06/26/18 11:49 Pulse 75 06/26/18 11:49 Resp 14 06/26/18 11:49 BP 150/60 H 06/26/18 11:49 Pulse Ox 99 06/26/18 11:49 Weight - Most Recent: 191 lb 8.002 oz I&O - Last 24 Hours: Intake & Output 06/25/18 06/26/18 06/26/18 22:59 06:59 14:59 Intake Total 790 240 420 Output Total 125 150 Balance 665 240 270 Med Orders - Current: Current Medications Acetaminophen (Tylenol) 650 mg PO Q4H PRN PRN Reason: Pain (Mild 1-3)/fever Albuterol (Proventil Neb Soln) 2.5 mg NEB Q4H PRN PRN Reason: Shortness Of Breath/wheezing Docusate Sodium (Colace) 100 mg PO BID PRN PRN Reason: Constipation Donepezil HCl (Aricept) 10 mg PO BEDTIME [facility] Last Admin: 06/25/18 20:03 Dose: 10 mg Ceftriaxone Sodium 1 gm/ (Sodium Chloride) 50 mls @ 100 mls/hr IV Q24H [facility] Last Admin: 06/25/18 22:54 Dose: 100 mls/hr Melatonin (Melatonin) 9 mg PO BEDTIME [facility] Last Admin: 06/25/18 20:03 Dose: 9 mg (Levocarnitine [L- Carnitine] 500 Mg)* Pom 500 mg PO DAILY [facility] Last Admin: 06/25/18 09:16 Dose: Not Given Ondansetron HCl (Zofran Odt) 4 mg PO Q6H PRN PRN Reason: Nausea able to take PO Ondansetron HCl (Zofran) 4 mg IV Q4H PRN PRN Reason: Nausea/Vomiting Oxycodone HCl (Oxycodone) 5 mg PO Q4H PRN PRN Reason: Pain (moderate 4-6) Sodium Chloride (Saline Flush) 10 ml FLUSH ASDIRECTED PRN PRN Reason: Keep Vein Open Last Admin: 06/24/18 17:19 Dose: 10 ml Discontinued Medications Aspirin (Aspirin) 162 mg PO ONETIME ONE Stop: 06/24/18 20:39 Last Admin: 06/24/18 21:12 Dose: 162 mg Sodium Chloride (Normal Saline) 1,000 mls @ 125 mls/hr IV ASDIRECTED [facility] Last Admin: 06/25/18 04:46 Dose: 125 mls/hr Ceftriaxone Sodium 1 gm/ (Sodium Chloride) 50 mls @ 100 mls/hr IV Q24H [facility] Last Admin: 06/24/18 23:01 Dose: 100 mls/hr Lorazepam (Ativan) 1 mg IV Q6H PRN PRN Reason: Agitation Morphine Sulfate (Morphine) 2 mg IVPUSH Q2H PRN PRN Reason: Pain (severe 7-10) - Exam Quality Assessment: DVT Prophylaxis General: Alert, Cooperative, No Acute Distress. No: Oriented Lungs: Clear to Auscultation, Normal Respiratory Effort Cardiovascular: Regular Rate, Regular Rhythm, No Murmurs GI/Abdominal Exam: Soft, Non-Tender, No Organomegaly, No Distention Extremities: Non-Tender, No Pedal Edema Neurological: No New Focal Deficit - Problem List Review Problem List Initiated/Reviewed/Updated: Yes - My Orders Last 24 Hours: My Active Orders 06/25/18 11:59 Convert IV to Saline Lock [OM.PC] Routine 06/25/18 12:47 Communication Order [RC] ASDIRECTED 06/25/18 21:00 Melatonin 9 mg PO BEDTIME - Plan Plan:: ASSESSMENT AND PLAN Stroke like symptoms-resolved -monitor for any worsen symptoms - declines any aggressive treatments or testing. She was offered referral/ transfer to Neurology unit, baby ASA, Tele, MRI with contrast, Carotid Doppler and Echocardiogram. She would agree to baby ASA and Tele. 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 ADMISSION STATUS-patient will be admitted to inpatient status, expect at least a 2 night hospital stay for evaluation and management of problems as outlined above. At the time of this admission I do not reasonably expected evaluation and management of this problem will require more than a 96 hour hospital stay. DISPOSITION-anticipate discharge to Memory Care unit or [facility] after the hospital stay. Primary Care Provider: [facility] Hospitalist: Dr. Natan M.D.
[2018-06-26] MEDS: LEVOCARNITINE 500 MG PO SCH (16:04)
[2018-06-26] MEDS: Lactobacillus Rhamnosus GG (Probiotic) Cap PO SCH ×2 (16:04→20:37)
[2018-06-26] MEDS: Cephalexin 250 MG Cap PO SCH ×2 (16:05→22:00)
[2018-06-26] MEDS: Donepezil 10 MG Tab PO SCH (20:37)
[2018-06-26] MEDS: Melatonin 3 MG Tab PO SCH (20:37)
[2018-06-27] MEDS: Cephalexin 250 MG Cap PO SCH ×4 (03:41→21:00)
[2018-06-27] MEDS: Lactobacillus Rhamnosus GG (Probiotic) Cap PO SCH ×2 (10:06→20:01)
[2018-06-27] MEDS: LEVOCARNITINE 500 MG PO SCH (10:07)
--- NOTE | 2018-06-27 16:49 | PCM.PN ---
- General Info Date of Service: 06/27/18 Subjective Update: Mr. Malagon has been stable as far as neurological status, no new neurologic deficits. Remains pleasantly confused, unable to provide meaningful information concerning symptoms or review of systems because of his dementia. During the night was noted to have heart rates that dipped into the 20s. Discussed with patient's and we'll plan to proceed with dual-chamber permanent pacemaker placement. - Patient Data Vitals - Most Recent: Last Vital Signs Temp 96.1 F 06/27/18 15:43 Pulse 46 L 06/27/18 15:43 Resp 16 06/27/18 15:43 BP 138/70 06/27/18 15:43 Pulse Ox 98 06/27/18 15:43 Weight - Most Recent: 191 lb 8.002 oz I&O - Last 24 Hours: Intake & Output 06/27/18 06/27/18 06/27/18 06:59 14:59 22:59 Intake Total 480 480 Balance 480 480 Jamil Results Last 24 Hours: Microbiology 06/24/18 22:32 Urine Culture - Final Urine, Bladder Escherichia Coli Med Orders - Current: Current Medications Acetaminophen (Tylenol) 650 mg PO Q4H PRN PRN Reason: Pain (Mild 1-3)/fever Albuterol (Proventil Neb Soln) 2.5 mg NEB Q4H PRN PRN Reason: Shortness Of Breath/wheezing Cephalexin (Keflex) 250 mg PO Q6HR [facility] Last Admin: 06/27/18 10:06 Dose: 250 mg Docusate Sodium (Colace) 100 mg PO BID PRN PRN Reason: Constipation Donepezil HCl (Aricept) 10 mg PO BEDTIME [facility] Last Admin: 06/26/18 20:37 Dose: 10 mg Lactated Ringer's (Ringers, Lactated) 1,000 mls @ 100 mls/hr IV ASDIRECTED [facility] Cefazolin Sodium/Dextrose 2 gm (/ Premix) 50 mls @ 100 mls/hr IV ONCALL ONE Stop: 06/28/18 07:59 Lactobacillus Rhamnosus (Culturelle) 1 cap PO BID [facility] Last Admin: 06/27/18 10:06 Dose: 1 cap Melatonin (Melatonin) 9 mg PO BEDTIME [facility] Last Admin: 06/26/18 20:37 Dose: 9 mg (Levocarnitine [L- Carnitine] 500 Mg)* Pom 500 mg PO DAILY [facility] Last Admin: 06/27/18 10:07 Dose: Not Given Ondansetron HCl (Zofran Odt) 4 mg PO Q6H PRN PRN Reason: Nausea able to take PO Ondansetron HCl (Zofran) 4 mg IV Q4H PRN PRN Reason: Nausea/Vomiting Oxycodone HCl (Oxycodone) 5 mg PO Q4H PRN PRN Reason: Pain (moderate 4-6) Sodium Chloride (Saline Flush) 10 ml FLUSH ASDIRECTED PRN PRN Reason: Keep Vein Open Last Admin: 06/24/18 17:19 Dose: 10 ml Discontinued Medications Aspirin (Aspirin) 162 mg PO ONETIME ONE Stop: 06/24/18 20:39 Last Admin: 06/24/18 21:12 Dose: 162 mg Sodium Chloride (Normal Saline) 1,000 mls @ 125 mls/hr IV ASDIRECTED [facility] Last Admin: 06/25/18 04:46 Dose: 125 mls/hr Ceftriaxone Sodium 1 gm/ (Sodium Chloride) 50 mls @ 100 mls/hr IV Q24H [facility] Last Admin: 06/24/18 23:01 Dose: 100 mls/hr Ceftriaxone Sodium 1 gm/ (Sodium Chloride) 50 mls @ 100 mls/hr IV Q24H [facility] Last Admin: 06/25/18 22:54 Dose: 100 mls/hr Lorazepam (Ativan) 1 mg IV Q6H PRN PRN Reason: Agitation Morphine Sulfate (Morphine) 2 mg IVPUSH Q2H PRN PRN Reason: Pain (severe 7-10) - Exam Quality Assessment: DVT Prophylaxis General: Alert, Cooperative, No Acute Distress. No: Oriented Lungs: Clear to Auscultation, Normal Respiratory Effort Cardiovascular: Regular Rhythm, No Murmurs, Bradycardia GI/Abdominal Exam: Soft, Non-Tender, No Organomegaly, No Distention Extremities: Non-Tender, No Pedal Edema - Problem List Review Problem List Initiated/Reviewed/Updated: Yes - My Orders Last 24 Hours: My Active Orders 06/26/18 16:00 cephALEXin [Keflex] 250 mg PO Q6HR 06/27/18 10:28 Consult to Physician [CONS] Routine 06/27/18 10:29 Notify Provider Consults [RC] ASDIRECTED 06/27/18 10:35 Communication Order [RC] ASDIRECTED 06/28/18 00:01 Lactated Ringers [Ringers, Lactated] 1,000 ml IV ASDIRECTED 06/28/18 Breakfast NPO After Midnight [Nothing per Oral After Midnight Diet] [DIET] - Plan Plan:: ASSESSMENT AND PLAN Stroke like symptoms-resolved -monitor for any worsen symptoms - declines any aggressive treatments or testing. She was offered referral/ transfer to Neurology unit, baby ASA, Tele, MRI with contrast, Carotid Doppler and Echocardiogram. She would agree to baby ASA and Tele. She has declined further evaluation including MRI carotid Doppler and echo Urinary Tract Infection-Escherichia coli cultured from urine -Cephalexin 250 mg by mouth every 6 hours -Saline lock IV -I&O Severe bradycardia-heart rates into the 20s last night he has a history of progressive weakness and poor exercise tolerance likely related to his bradycardia -Dual-chamber permanent pacemaker placement in the a.m. 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 ADMISSION STATUS-patient will be admitted to inpatient status, expect at least a 2 night hospital stay for evaluation and management of problems as outlined above. At the time of this admission I do not reasonably expected evaluation and management of this problem will require more than a 96 hour hospital stay. DISPOSITION-anticipate discharge to Memory Care unit or [facility] after the hospital stay. Primary Care Provider: [facility] Hospitalist: Dr. Natan M.D.
[2018-06-27] MEDS: Melatonin 3 MG Tab PO SCH (20:00)
[2018-06-27] MEDS: Donepezil 10 MG Tab PO SCH (20:01)
[2018-06-28] MEDS ORDERED: Lactated Ringers 1,000 ML IV SCH (00:01)
[2018-06-28] MEDS: Cephalexin 250 MG Cap PO SCH ×2 (03:31→13:20)
[2018-06-28] MEDS ORDERED: Bupivacaine 0.5% 50 ML MDV ONE (07:03)
[2018-06-28] MEDS ORDERED: Meropenem 500 MG SDV ONE (07:03)
[2018-06-28] MEDS ORDERED: Lidocaine 1% with EPINEPHrine 1:100,000 50 ML MDV ONE (07:03)
[2018-06-28] MEDS ORDERED: ceFAZolin 2 GM in Premix Bag 1 BAG IV ONE (07:30)
[2018-06-28] MEDS ORDERED: fentaNYL 100 MCG/2 ML SDV ONE (07:55)
[2018-06-28] MEDS ORDERED: Propofol 200 MG/20 ML SDV ONE (07:55)
--- NOTE | 2018-06-28 11:31 | PCM.PN ---
- General Info Date of Service: 06/28/18 Subjective Update: Mr. Malagon is stable status post permanent pacemaker placement done earlier this morning. He is unable to provide meaningful information concerning symptoms or review of systems because of his significant dementia. - Patient Data Vitals - Most Recent: Last Vital Signs Temp 96 F 06/28/18 10:50 Pulse 69 06/28/18 10:50 Resp 16 06/28/18 10:50 BP 169/88 H 06/28/18 10:50 Pulse Ox 100 06/28/18 10:50 Weight - Most Recent: 191 lb 8.002 oz I&O - Last 24 Hours: Intake & Output 06/27/18 06/28/18 06/28/18 21:59 06:59 14:59 Intake Total Output Total 375 Balance -375 Jamil Results Last 24 Hours: Microbiology 06/24/18 22:32 Urine Culture - Final Urine, Bladder Escherichia Coli Med Orders - Current: Current Medications Acetaminophen (Tylenol) 650 mg PO Q4H PRN PRN Reason: Pain (Mild 1-3)/fever Albuterol (Proventil Neb Soln) 2.5 mg NEB Q4H PRN PRN Reason: Shortness Of Breath/wheezing Cephalexin (Keflex) 250 mg PO Q6HR [facility] Docusate Sodium (Colace) 100 mg PO BID PRN PRN Reason: Constipation Donepezil HCl (Aricept) 10 mg PO BEDTIME [facility] Last Admin: 06/27/18 20:01 Dose: 10 mg Cefazolin Sodium/Dextrose 2 gm (/ Premix) 50 mls @ 100 mls/hr IV Q8H [facility] Stop: 06/29/18 08:29 Lactobacillus Rhamnosus (Culturelle) 1 cap PO BID [facility] Last Admin: 06/27/18 20:01 Dose: 1 cap Lisinopril (Prinivil) 10 mg PO DAILY [facility] Melatonin (Melatonin) 9 mg PO BEDTIME [facility] Last Admin: 06/27/18 20:00 Dose: 9 mg (Levocarnitine [L- Carnitine] 500 Mg)* Pom 500 mg PO DAILY [facility] Last Admin: 06/27/18 10:07 Dose: Not Given Ondansetron HCl (Zofran Odt) 4 mg PO Q6H PRN PRN Reason: Nausea able to take PO Ondansetron HCl (Zofran) 4 mg IV Q4H PRN PRN Reason: Nausea/Vomiting Oxycodone HCl (Oxycodone) 5 mg PO Q4H PRN PRN Reason: Pain (moderate 4-6) Sodium Chloride (Saline Flush) 10 ml FLUSH ASDIRECTED PRN PRN Reason: Keep Vein Open Last Admin: 06/24/18 17:19 Dose: 10 ml Discontinued Medications Aspirin (Aspirin) 162 mg PO ONETIME ONE Stop: 06/24/18 20:39 Last Admin: 06/24/18 21:12 Dose: 162 mg Bupivacaine HCl (Marcaine 0.5%) Confirm Administered Dose 50 ml .ROUTE .STK-MED ONE Stop: 06/28/18 07:04 Last Admin: 06/28/18 08:36 Dose: 5.5 ml Cephalexin (Keflex) 250 mg PO Q6HR [facility] Last Admin: 06/28/18 03:31 Dose: 250 mg Fentanyl (Sublimaze) Confirm Administered Dose 100 mcg .ROUTE .STK-MED ONE Stop: 06/28/18 07:56 Sodium Chloride (Normal Saline) 1,000 mls @ 125 mls/hr IV ASDIRECTED [facility] Last Admin: 06/25/18 04:46 Dose: 125 mls/hr Ceftriaxone Sodium 1 gm/ (Sodium Chloride) 50 mls @ 100 mls/hr IV Q24H [facility] Last Admin: 06/24/18 23:01 Dose: 100 mls/hr Ceftriaxone Sodium 1 gm/ (Sodium Chloride) 50 mls @ 100 mls/hr IV Q24H [facility] Last Admin: 06/25/18 22:54 Dose: 100 mls/hr Lactated Ringer's (Ringers, Lactated) 1,000 mls @ 100 mls/hr IV ASDIRECTED [facility] Last Admin: 06/28/18 07:07 Dose: 100 mls/hr Cefazolin Sodium/Dextrose 2 gm (/ Premix) 50 mls @ 100 mls/hr IV ONCALL ONE Stop: 06/28/18 07:59 Last Admin: 06/28/18 08:10 Dose: 100 mls/hr Linezolid (Zyvox) Confirm Administered Dose 300 mls @ as directed .ROUTE .STK- MED ONE Stop: 06/28/18 08:21 Lidocaine/Epinephrine (Xylocaine 1% With Epinephrine 1:100,000) Confirm Administered Dose 50 ml .ROUTE .STK-MED ONE Stop: 06/28/18 07:04 Last Admin: 06/28/18 08:36 Dose: 5.5 ml Linezolid (Zyvox) 600 mg IRR .STK-MED ONE Stop: 06/28/18 08:36 Last Admin: 06/28/18 08:35 Dose: 600 mg Lorazepam (Ativan) 1 mg IV Q6H PRN PRN Reason: Agitation Meropenem (Merrem) Confirm Administered Dose 500 mg .ROUTE .STK-MED ONE Stop: 06/28/18 07:04 Last Admin: 06/28/18 08:35 Dose: 500 mg Morphine Sulfate (Morphine) 2 mg IVPUSH Q2H PRN PRN Reason: Pain (severe 7-10) Propofol (Diprivan 20 Ml) Confirm Administered Dose 200 mg .ROUTE .STK-MED ONE Stop: 06/28/18 07:56 - Exam Quality Assessment: DVT Prophylaxis General: Alert, Cooperative, No Acute Distress. No: Oriented Lungs: Clear to Auscultation, Normal Respiratory Effort Cardiovascular: Regular Rate, Regular Rhythm, No Murmurs GI/Abdominal Exam: Soft, Non-Tender, No Organomegaly, No Distention Extremities: Non-Tender, No Pedal Edema - Problem List Review Problem List Initiated/Reviewed/Updated: Yes - My Orders Last 24 Hours: My Active Orders 06/27/18 10:28 Consult to Physician [CONS] Routine 06/27/18 10:29 Notify Provider Consults [RC] ASDIRECTED 06/27/18 10:35 Communication Order [RC] ASDIRECTED 06/28/18 11:18 Convert IV to Saline Lock [OM.PC] Routine 06/28/18 11:30 Lisinopril [Prinivil] 10 mg PO DAILY 06/28/18 Lunch Regular Diet [DIET] 06/29/18 16:00 cephALEXin [Keflex] 250 mg PO Q6HR - Plan Plan:: ASSESSMENT AND PLAN Stroke like symptoms-resolved -monitor for any worsen symptoms - declines any aggressive treatments or testing. She was offered referral/ transfer to Neurology unit, baby ASA, Tele, MRI with contrast, Carotid Doppler and Echocardiogram. She would agree to baby ASA and Tele. She has declined further evaluation including MRI carotid Doppler and echo Urinary Tract Infection-Escherichia coli cultured from urine -Cephalexin 250 mg by mouth every 6 hours, plan to discontinue tomorrow -Saline lock IV -I&O Severe bradycardia-rates documented into the 20s, status post permanent pacemaker placement earlier today -Surgical follow-up per Dr. 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 ADMISSION STATUS-patient will be admitted to inpatient status, expect at least a 2 night hospital stay for evaluation and management of problems as outlined above. At the time of this admission I do not reasonably expected evaluation and management of this problem will require more than a 96 hour hospital stay. DISPOSITION-anticipate discharge to Long Term tomorrow Primary Care Provider: Ajith Sánchez Hospitalist: Dr. Natan M.D.
[2018-06-28] MEDS: LEVOCARNITINE 500 MG PO SCH (12:52)
[2018-06-28] MEDS: Lisinopril 10 MG Tab PO SCH (12:53)
[2018-06-28] MEDS: Lactobacillus Rhamnosus GG (Probiotic) Cap PO SCH ×2 (12:53→20:01)
--- NOTE | 2018-06-28 13:32 | PCM.DCSUM1 ---
Discharge Summary - Hospital Course Brief History: Mr. Malagon is an 83-year-old gentleman who was admitted through the emergency department with facial weakness and slurred speech secondary to a TIA. On evaluation in the emergency department was also found to have evidence of underlying urinary tract infection. - Discharge Data Discharge Date: 06/28/18 Discharge Disposition: Home, Self-Care 01 Condition: Fair - Discharge Diagnosis/Problem(s) (1) Bradycardia with less than 30 beats per minute SNOMED Code(s): 52019528 ICD Code: R00.1 - BRADYCARDIA, UNSPECIFIED Status: Acute Current Visit: Yes (2) TIA (transient ischemic attack) SNOMED Code(s): 667451312 ICD Code: G45.9 - TRANSIENT CEREBRAL ISCHEMIC ATTACK, UNSPECIFIED Status: Acute Current Visit: Yes (3) Palliative care status SNOMED Code(s): 533257541 ICD Code: Z51.5 - ENCOUNTER FOR PALLIATIVE CARE Status: Acute Current Visit: Yes (4) Urinary tract infection SNOMED Code(s): 62919835 ICD Code: N39.0 - URINARY TRACT INFECTION, SITE NOT SPECIFIED Status: Acute Priority: High Current Visit: Yes Qualifiers: Urinary tract infection type: site unspecified Hematuria presence: with hematuria Qualified Code(s): N39.0 - Urinary tract infection, site not specified; R31.9 - Hematuria, unspecified (5) Atrial fibrillation SNOMED Code(s): 82904996 ICD Code: I48.91 - UNSPECIFIED ATRIAL FIBRILLATION Status: Acute Priority : Medium Current Visit: Yes Qualifiers: Atrial fibrillation type: chronic Qualified Code(s): I48.2 - Chronic atrial fibrillation (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 OT Reason for Consult: ADL's This query below is only for informational purposes and is not editable. PT Evaluation and Treatment [CONS] Routine Please Evaluate and Treat. PT Reason for Consult: Ambulation This query below is only for informational purposes and is not editable. 06/27/18 10:28 Consult to Physician [CONS] Routine Consulting Provider: Gary Butler Courtesy Call Completed to Consulting Physician: Yes Reason for Consult: Severe bradycardia, dual-chamber permanent pacemaker placement Hospital Course: Mr. Malagon is a 83-year-old gentleman who presented emergency department with complaint of slurred speech, his is present with him. She believes the symptoms started last night states he might of been better this morning but the symptoms now have progressed he is well over 24 hours out. He does have a known history of underlying dementia reports no other symptomatology other than has been drooling for about a week. CT scan of the head was obtained in the emergency department and showed no evidence of acute infarct. At the time of evaluation in the emergency department facial weakness and slurred speech had almost totally resolved. Discussion was held with his concerning further evaluation and management. She would prefer a palliative care approach and requested no further intervention or evaluation of his neurovascular disease. He was placed on aspirin 162 mg daily. Neuro checks were obtained and by the following morning he had only mild residual weakness in the forehead. By the following day neurologic symptoms had totally resolved. On evaluation in the emergency department was also found to have evidence of a urinary tract infection, urine cultures were obtained and he was started on IV antibiotic therapy with Rocephin. Urine culture later grew out Escherichia coli and he was transitioned to oral antibiotic therapy with cephalexin. By the time of discharge he completed a adequate course of antibiotic therapy for the urinary tract infection. He was noted to have hypertension intermittently throughout the hospital course, he was started on lisinopril 10 mg by mouth daily and this will be continued on discharge. During hospitalization he was on telemetry monitoring and was noted to have episodes of marked bradycardia with heart rates into the 30s and even 20s. This appeared to represent a ventricular escape. We discussed options for management with his decided to proceed with permanent pacemaker placement which was accomplished on the day prior to discharge by Dr. Butler. He will be discharged to [facility] for [facility]orative physical therapy and occupational therapy. Activity will be as tolerated and he will be on a geriatric diet. Follow-up concerning his pacemaker will be scheduled with Dr. Butler as an outpatient. Patient should avoid lifting his left arm over the level of the shoulder for the next 6 weeks. His prefers to continue or of a palliative care approach with relatively minimal interventions or evaluations. - Patient Instructions Diet: Usual Diet as Tolerated Activity: As Tolerated Other/Special Instructions: Discharge to [facility] for restorative physical therapy and occupational therapy. Do not lift the left arm over the level of the shoulder for the next 6 weeks. - Discharge Plan *PRESCRIPTION DRUG MONITORING PROGRAM REVIEWED*: Not Applicable *COPY OF PRESCRIPTION DRUG MONITORING REPORT IN PATIENT KATELYN: Not Applicable Prescriptions/Med Rec: Aspirin [Adult Low Dose Aspirin EC] 162 mg PO DAILY #60 tablet.dr Brar Rhamnsuri WYMAN [Culturelle] 1 cap PO BID #60 cap Lisinopril [Prinivil] 10 mg PO DAILY #30 tablet Home Medications: Home Meds Cholecalciferol (Vitamin D3) [Vitamin D3] 3,000 unit PO DAILY 02/09/15 [History] [place]-3 Fatty Acids [Fish Oil] 1,000 mg PO DAILY 02/09/15 [History] Resveratrol 800 mg PO DAILY 02/09/15 [History] Ubidecarenone [Co Q-10] 50 mg PO DAILY 02/09/15 [History] Vitamin D3/Vitamin K2 [D3 + K2 Dots 1,000 Unit] 2,100 mcg PO DAILY 02/09/15 [ History] levOCARNitine [l-Carnitine] 500 mg PO DAILY 02/09/15 [History] Donepezil HCl [Aricept] 10 mg PO BEDTIME 05/08/18 [History] Aspirin [Adult Low Dose Aspirin EC] 162 mg PO DAILY #60 tablet. 06/28/18 [Rx] Lactobacillus Rhamnosus GG [Culturelle] 1 cap PO BID #60 cap 06/28/18 [Rx] Lisinopril [Prinivil] 10 mg PO DAILY #30 tablet 06/28/18 [Rx] - Discharge Summary/Plan Comment DC Time >30 min.: No - Patient Data Vitals - Most Recent: Last Vital Signs Temp 96.8 F 06/28/18 12:30 Pulse 70 06/28/18 12:30 Resp 16 06/28/18 12:30 BP 180/74 H 06/28/18 12:53 Pulse Ox 100 06/28/18 12:30 Weight - Most Recent: 191 lb 8.002 oz I&O - Last 24 hours: Intake & Output 06/27/18 06/28/18 06/28/18 21:59 06:59 14:59 Intake Total Output Total 575 Balance -575 Med Orders - Current: Current Medications Acetaminophen (Tylenol) 650 mg PO Q4H PRN PRN Reason: Pain (Mild 1-3)/fever Albuterol (Proventil Neb Soln) 2.5 mg NEB Q4H PRN PRN Reason: Shortness Of Breath/wheezing Cephalexin (Keflex) 250 mg PO Q6HR [facility] Docusate Sodium (Colace) 100 mg PO BID PRN PRN Reason: Constipation Donepezil HCl (Aricept) 10 mg PO BEDTIME [facility] Last Admin: 06/27/18 20:01 Dose: 10 mg Cefazolin Sodium/Dextrose 2 gm (/ Premix) 50 mls @ 100 mls/hr IV Q8H [facility] Stop: 06/29/18 08:29 Lactobacillus Rhamnosus (Culturelle) 1 cap PO BID [facility] Last Admin: 06/28/18 12:53 Dose: 1 cap Lisinopril (Prinivil) 10 mg PO DAILY [facility] Last Admin: 06/28/18 12:53 Dose: 10 mg Melatonin (Melatonin) 9 mg PO BEDTIME [facility] Last Admin: 06/27/18 20:00 Dose: 9 mg (Levocarnitine [L- Carnitine] 500 Mg)* Pom 500 mg PO DAILY [facility] Last Admin: 06/28/18 12:52 Dose: Not Given Ondansetron HCl (Zofran Odt) 4 mg PO Q6H PRN PRN Reason: Nausea able to take PO Ondansetron HCl (Zofran) 4 mg IV Q4H PRN PRN Reason: Nausea/Vomiting Oxycodone HCl (Oxycodone) 5 mg PO Q4H PRN PRN Reason: Pain (moderate 4-6) Sodium Chloride (Saline Flush) 10 ml FLUSH ASDIRECTED PRN PRN Reason: Keep Vein Open Last Admin: 06/24/18 17:19 Dose: 10 ml Discontinued Medications Aspirin (Aspirin) 162 mg PO ONETIME ONE Stop: 06/24/18 20:39 Last Admin: 06/24/18 21:12 Dose: 162 mg Bupivacaine HCl (Marcaine 0.5%) Confirm Administered Dose 50 ml .ROUTE .STK-MED ONE Stop: 06/28/18 07:04 Last Admin: 06/28/18 08:36 Dose: 5.5 ml Cephalexin (Keflex) 250 mg PO Q6HR [facility] Last Admin: 06/28/18 13:20 Dose: Not Given Fentanyl (Sublimaze) Confirm Administered Dose 100 mcg .ROUTE .STK-MED ONE Stop: 06/28/18 07:56 Sodium Chloride (Normal Saline) 1,000 mls @ 125 mls/hr IV ASDIRECTED [facility] Last Admin: 06/25/18 04:46 Dose: 125 mls/hr Ceftriaxone Sodium 1 gm/ (Sodium Chloride) 50 mls @ 100 mls/hr IV Q24H [facility] Last Admin: 06/24/18 23:01 Dose: 100 mls/hr Ceftriaxone Sodium 1 gm/ (Sodium Chloride) 50 mls @ 100 mls/hr IV Q24H [facility] Last Admin: 06/25/18 22:54 Dose: 100 mls/hr Lactated Ringer's (Ringers, Lactated) 1,000 mls @ 100 mls/hr IV ASDIRECTED [facility] Last Admin: 06/28/18 07:07 Dose: 100 mls/hr Cefazolin Sodium/Dextrose 2 gm (/ Premix) 50 mls @ 100 mls/hr IV ONCALL ONE Stop: 06/28/18 07:59 Last Admin: 06/28/18 08:10 Dose: 100 mls/hr Linezolid (Zyvox) Confirm Administered Dose 300 mls @ as directed .ROUTE .STK- MED ONE Stop: 06/28/18 08:21 Lidocaine/Epinephrine (Xylocaine 1% With Epinephrine 1:100,000) Confirm Administered Dose 50 ml .ROUTE .STK-MED ONE Stop: 06/28/18 07:04 Last Admin: 06/28/18 08:36 Dose: 5.5 ml Linezolid (Zyvox) 600 mg IRR .STK-MED ONE Stop: 06/28/18 08:36 Last Admin: 06/28/18 08:35 Dose: 600 mg Lorazepam (Ativan) 1 mg IV Q6H PRN PRN Reason: Agitation Meropenem (Merrem) Confirm Administered Dose 500 mg .ROUTE .STK-MED ONE Stop: 06/28/18 07:04 Last Admin: 06/28/18 08:35 Dose: 500 mg Morphine Sulfate (Morphine) 2 mg IVPUSH Q2H PRN PRN Reason: Pain (severe 7-10) Propofol (Diprivan 20 Ml) Confirm Administered Dose 200 mg .ROUTE .K-MED ONE Stop: 06/28/18 07:56 - Exam Quality Assessment: Reports: DVT Prophylaxis General: Reports: Alert, Cooperative, No Acute Distress. Denies: Oriented Lungs: Reports: Clear to Auscultation, Normal Respiratory Effort Cardiovascular: Reports: Regular Rate, Regular Rhythm, No Murmurs GI/Abdominal Exam: Soft, Non-Tender, No Organomegaly, No Distention
[2018-06-28] MEDS: ceFAZolin 2 GM in Premix Bag 1 BAG IV SCH (17:47)
[2018-06-28] MEDS: Donepezil 10 MG Tab PO SCH (20:01)
[2018-06-28] MEDS: Melatonin 3 MG Tab PO SCH (20:01)
[2018-06-29] MEDS: ceFAZolin 2 GM in Premix Bag 1 BAG IV SCH ×3 (07:17)
[2018-06-29 08:30] VITALS: BP 190/94
[2018-06-29] MEDS: Lactobacillus Rhamnosus GG (Probiotic) Cap PO SCH (08:34)
[2018-06-29] MEDS: Lisinopril 10 MG Tab PO SCH (08:34)
[2018-06-29] MEDS: LEVOCARNITINE 500 MG PO SCH (08:34)
[2018-06-29] MEDS ORDERED: Cephalexin 250 MG Cap PO SCH (16:00)
--- NOTE | 2018-06-30 04:47 | DISCH ---
ADMISSION DIAGNOSES: 1. Bradycardia. 2. Stroke like symptoms. 3. 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 4. Urinary tract infection. 5. 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 6. Atrial fibrillation. DISCHARGE DIAGNOSES: 1. Pacemaker insertion for bradycardia. 2. History of atrial fibrillation. DATE OF SURGERY: 06/28/2017. SURGEON: Gary Butler MD. HISTORY: Surinder Malagon is an 83-year-old male, who has altered mental status, advanced dementia, who was admitted to the hospital for stroke like symptoms on 06/24/2018. He also had right facial weakness, urinary tract infection. On 06/26, he was stable, remained pleasantly confused, facial weakness totally resolved. He was given Rocephin 1 g for urinary tract infection. On 06/27, neurological status was stable. He was changed to cephalexin oral by mouth and developed some severe bradycardia. Heart rates in the 20s. On 06/28, the pacemaker was inserted. He had no postoperative complications. On postoperative day 1, vital signs were stable, heart rate in the 70s, he was able to be discharged home. PHYSICAL EXAMINATION: GENERAL: Surinder Malagon is an 83-year-old male. VITAL SIGNS: Height is 5 feet 10 inches, weight is 191 pounds. TPR: 97.7, 70, 16. Blood pressure 162/80. HEENT: Negative. NECK: Supple. HEART: Regular rate and rhythm. LUNGS: Clear. Left upper chest incision Steri-Strips, there is no hematoma noted. Dressing was removed. EXTREMITIES: Without peripheral edema. DISPOSITION: Discharged home. CONDITION: Stable and improving. FOLLOWUP: Followup appointment with Gary Butler MD on 07/08/2018 at 9:00 a.m. DISCHARGE MEDICATIONS: Home medications: 1. Aspirin low-dose enteric-coated 2 tablets daily 81 mg. 2. Culturelle 1 capsule twice daily, #60. 3. Prinivil (lisinopril) 10 mg oral daily, #30. He is to resume his home medications: 1. Vitamin D 3000 oral units. 2. Aricept 10 mg oral at bedtime. 3. [place]-3 fatty acids 1000 mg oral daily. 4. Resveratrol 800 mg oral daily. 5. CoQ10 of 50 mg oral daily. 6. Vitamin D3 oral daily. 7. Levocarnitine 500 mg oral daily. 8. Discontinue Gamma E and vitamin E per Romario Gama MD. DIET: Usual diet as tolerated. Drink plenty of fluids. May shower. DISCHARGE INSTRUCTIONS: Notify provider if any fever, increased pain. Wound incision, keep clean and dry. [facility] and [facility] therapy. Do not lift arm over level of shoulder for the next 6 weeks. Set up appointment was [facility] prior to discharge.
--- NOTE | 2018-07-03 09:30 | OR ---
DATE OF PROCEDURE: 06/28/2018 SURGEON: Gary Butler MD PREOPERATIVE DIAGNOSIS: Symptomatic marked bradycardia. POSTOPERATIVE DIAGNOSIS: Symptomatic marked bradycardia. OPERATIVE PROCEDURE: Placement of dual-chamber cardiac pacemaker (90813). ANESTHESIA: Local plus IV sedation. INDICATION FOR PROCEDURE: This is an 83-year-old presenting with some episodes of recent falling and was noted to have heart rate as low as in the 20s. He does have atrial fibrillation, raising the possibility that he might be converted at some point. Dr. Gama, the consulting hospitalist, felt like dual-chamber pacemaker would be appropriate. Potential risks of the procedure were reviewed with the patient and particularly his , as the patient has some degree of dementia, including bleeding, infection, injury to the lung or vasculature, possibility of pacemaker malfunctioning, as well as possibility of cardiopulmonary, septic, or hemorrhagic complications leading to were all discussed, and the patient and wished to proceed. DESCRIPTION OF PROCEDURE: The patient was taken to the operating room and placed in a supine position. IV sedation was administered, after which the upper chest and neck areas were prepped and draped. The left subclavian area was then anesthetized with 1% lidocaine, the subclavian vein cannulated, and the guidewire was passed and manipulated into the superior vena cava. Some additional local was then injected, and a transverse infraclavicular incision was made and carried down through the skin and subcutaneous tissue and through the pectoralis major fascia. A pouch was then bluntly constructed behind the pectoralis major fascia. A second guidewire was then placed, and then the Medtronic leads were then both positioned into the area of the superior vena cava via introducers and peel- away catheters. Both of these were screw-in type leads. The right atrial lead was a Medtronic model #5076-52 and the ventricular lead was a Medtronic model #5076-58. Additionally, a ventricular lead was placed out in the apex of the right ventricle. The initial site was inadequate in terms of electrical parameters, and the second one was satisfactory with stimulation threshold of 0.7 V, impedance of 561 ohms, and R-wave sensing of 7.4 mV. The right atrial lead was then placed, again without difficulty. The stimulation threshold obviously could not be tested with the patient being in atrial fibrillation. Impedence was 506 ohms and P-wave sensing of 0.8 mV. Both leads were tested on 10 V with no stimulation of the diaphragm noted. The leads were then sutured into position after fluoroscopy confirmed adequate amount of slack in the system, and these were sutured in the pocket with some 3-0 Vicryl stitch. QBEtronic pulse generator model #[id number] was then placed, and adequate pacing and sensing functions were confirmed. The redundant lead and pulse generator were placed into the pocket, which was then closed with two layers of 0 Vicryl stitch deep and a 4-0 Vicryl subcuticular stitch. Throughout the procedure, the area was irrigated with Zyvox containing saline solution. Chest x-rays were obtained laterally and PA approach, both of which showed good lead position and no evidence of complications. The patient was taken to the recovery room in satisfactory condition. Gary Butler MD /[id number]
== END 2018-06-29 12:55 | DRG 41 ==
LOC: JP.ED 16:43 → JP.MS 19:47
PROVIDERS: ADMIT Hospitalist; ATTEND Internal Medicine
PROC: 0JH606Z Insertion of Pacemaker, Dual Chamber into Chest Subcutaneous Tissue and Fascia, Open Approach (ICD-10-PCS; principal; 2018-06-28)
PROC: 02H63JZ Insertion of Pacemaker Lead into Right Atrium, Percutaneous Approach (ICD-10-PCS; 2018-06-28)
PROC: 02HK3JZ Insertion of Pacemaker Lead into Right Ventricle, Percutaneous Approach (ICD-10-PCS; 2018-06-28)
PROC: 3E0102A Introduction of Anti-Infective Envelope into Subcutaneous Tissue, Open Approach (ICD-10-PCS; 2018-06-28)
DX: R29.90 Unspecified symptoms and signs involving the nervous system (principal); G45.9 Transient cerebral ischemic attack, unspecified; N39.0 Urinary tract infection, site not specified; Z51.5 Encounter for palliative care; Z66 Do not resuscitate; R00.1 Bradycardia, unspecified; B96.20 Unspecified Escherichia coli [E. coli] as the cause of diseases classified elsewhere; R31.9 Hematuria, unspecified; R47.81 Slurred speech; R26.81 Unsteadiness on feet; I10 Essential (primary) hypertension; G30.9 Alzheimer's disease, unspecified; F02.80 Dementia in other diseases classified elsewhere, unspecified severity, without behavioral disturbance, psychotic disturbance, mood disturbance, and anxiety; I48.2 Chronic atrial fibrillation; R29.6 Repeated falls; R32 Unspecified urinary incontinence; Z85.46 Personal history of malignant neoplasm of prostate; Z85.038 Personal history of other malignant neoplasm of large intestine; Z85.828 Personal history of other malignant neoplasm of skin; Z90.49 Acquired absence of other specified parts of digestive tract; Z88.5 Allergy status to narcotic agent
CPT/HCPCS: 36415; 70450; 80048; 80053; 80305-QW; 81001; 84484; 85025; 85610; 85730; 87086; 87088; 87186; 93005; 97110-GO; 97110-GP; 97116-GP; 97161-GP; 97166-GO; 97530-GP; 99285-25; A9270-GY; C1898; J0690; J0696; J2020; J2185; J2704; J3010; J3490; J7030; J7050; J7120

== ENCOUNTER 2018-12-22 19:51 | Emergency (ER) | payer MEDICARE, BC ==
[2018-12-22 20:11] VITALS: BP 142/82
--- NOTE | 2018-12-22 21:03 | EDM.PDOC ---
ED HPI GENERAL MEDICAL PROBLEM - General Chief Complaint: General Stated Complaint: FELL Time Seen by Provider: 12/22/18 20:20 Source of Information: Reports: Patient, EMS History Limitations: Reports: No Limitations - History of Present Illness INITIAL COMMENTS - FREE TEXT/NARRATIVE: 83-year-old male who lives in the local memory care unit stumbled and fell onto his right side. He has a history of falls, usually doesn't complain of pain but tonight was complaining of some discomfort in the right hip so they sent him in for evaluation. There is no deformity. He actually feels much better now with only mild discomfort. Onset: Sudden Duration: Hour(s): (Within the last 2 hours) Location: Reports: Lower Extremity, Right Associated Symptoms: Reports: No Other Symptoms Right Upper Hip Pain Score (Numeric/FACES): 2 - Related Data Allergies Allergy/AdvReac Type Severity Reaction Status Date / Time meperidine Allergy Cannot Verified 06/24/18 16:58 Remember Home Meds: Home Meds Cholecalciferol (Vitamin D3) [Vitamin D3] 3,000 unit PO DAILY 02/09/15 [History] [place]-3 Fatty Acids [Fish Oil] 1,000 mg PO DAILY 02/09/15 [History] Resveratrol 250 mg PO DAILY 02/09/15 [History] Ubidecarenone [Co Q-10] 50 mg PO DAILY 02/09/15 [History] Vitamin D3/Vitamin K2 [D3 + K2 Dots 1,000 Unit] 2,100 mcg PO DAILY 02/09/15 [ History] Cranberry 500 mg PO DAILY 12/22/18 [History] Curcumin 400 mg MC DAILY 12/22/18 [History] Past Medical History HEENT History: Reports: Cataract, Impaired Vision Cardiovascular History: Reports: Afib, CAD, Hypertension, Pacemaker Gastrointestinal History: Reports: Chronic Constipation, Chronic Diarrhea Other Gastrointestinal History: Hernia repairs. colon cancer colon resections Genitourinary History: Reports: Prostate Disorder, Urinary Incontinence Other Genitourinary History: Penile clamp Musculoskeletal History: Reports: Fracture, Other (See Below) Other Musculoskeletal History: weakness Neurological History: Reports: Alzheimers Disease, TIA Other Neuro History: dementia Psychiatric History: Reports: Anxiety, Dementia, Depression Endocrine/Metabolic History: Reports: Hypothyroidism Hematologic History: Reports: Other (See Below) Other Hematologic History: hypokalemia, Vit D deficiency Oncologic (Cancer) History: Reports: Colon, Prostate Other Oncologic History: skin Other Dermatologic History: skin cancer - Infectious Disease History Infectious Disease History: Reports: C-Difficile, Measles - Past Surgical History HEENT Surgical History: Reports: Cataract Surgery Social & Family History - Family History Family Medical History: Unobtainable - Tobacco Use Smoking Status *Q: Never Smoker - Caffeine Use Caffeine Use: Reports: None - Recreational Drug Use Recreational Drug Use: No - Living Situation & Occupation Living situation: Reports: , with Family Occupation: Disabled (lives with Sunita of 40 years. Son last year of sudden heart attack, Daughter is not well, Mental health issues. Disabled by Dementia. cared for at home by . 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 He does have some discomfort with passive internal and external rotation of the right hip and some moderate discomfort with palpation of the proximal femur.) Course - Vital Signs Last Recorded V/S: Last Vital Signs Temp 95.9 F 12/22/18 20:09 Pulse 74 12/22/18 20:09 Resp 16 12/22/18 20:09 BP 142/82 H 12/22/18 20:09 Pulse Ox 97 12/22/18 20:09 - Orders/Labs/Meds Meds: Medications Discontinued Medications Generic Name Dose Route Start Last Admin Trade Name Freq PRN Reason Stop Dose Admin Ibuprofen 600 mg 12/22/18 21:12 12/22/18 21:20 Motrin PO 12/22/18 21:13 600 mg ONETIME ONE Administration - Re-Assessments/Exams Free Text/Narrative Re-Assessment/Exam: 12/22/18 21:02 Because of the tenderness an x-ray was obtained which is normal. He'll be discharged with a diagnosis of contusion of the right hip. Departure - Departure Time of Disposition: :05 Disposition: DC/[facility] to [facility] Clinical Impression: Contusion of right hip Qualifiers: Encounter type: initial encounter Qualified Code(s): S70.01XA - Contusion of right hip, initial encounter - Discharge Information Instructions: Contusion, [id number] Referrals: Julio Prasad MD [Primary Care Provider] - Forms: ED Department Discharge Care Plan Goals: Increase activity as tolerated. Recheck in 3-4 days if not improving satisfactorily or return sooner if worsening or concerns. Ice to the sore area may be helpful.
[2018-12-22] MEDS ORDERED: Ibuprofen 600 MG Tab PO ONE (21:12)
--- NOTE | 2018-12-22 21:13 | CRLCR ---
INDICATION: Fall with injury. TECHNIQUE: AP pelvis, AP and cross-table lateral right hip. FINDINGS: The osseous structures appear demineralized. A lucency across the intertrochanteric region of the right femur is felt to be secondary to overlying soft tissues. No acute fractures or dislocations identified. Multiple surgical clips are present in the pelvis. Pelvic and proximal femoral enthesophytes are present. IMPRESSION: No acute osseous finding. Dictated by Steven Almanza MD @ Dec 22 2018 9:09PM Signed by Dr. Steven Almanza @ Dec 22 2018 9:11PM
== END 2018-12-22 21:31 ==
LOC: JP.ED 19:51
DX: S70.01XA Contusion of right hip, initial encounter (principal); C44.90 Unspecified malignant neoplasm of skin, unspecified; I10 Essential (primary) hypertension; Z91.81 History of falling; Z88.8 Allergy status to other drugs, medicaments and biological substances; Z85.038 Personal history of other malignant neoplasm of large intestine; Z79.899 Other long term (current) drug therapy; Z86.73 Personal history of transient ischemic attack (TIA), and cerebral infarction without residual deficits; W01.0XXA Fall on same level from slipping, tripping and stumbling without subsequent striking against object, initial encounter
CPT/HCPCS: 73502; 99284; A9270